=== PATIENT | female | born 1950 | race Caucasian/White ===

== ENCOUNTER 2016-06-18 09:59 | Inpatient (IN) | payer OTHER ==
[2016-05-26 10:11] VITALS: BMI 31.0
--- NOTE | 2016-05-26 10:39 | PAT Medication Instructions ---
Service Date May 26, 2016. Current Home Medication List Cyanocobalamin (Vitamin B-12), 1,000 MCG PO QAM Fexofenadine Hcl (Asya Allergy), 1 TAB PO QAM Fish Oil (Hitchins-3), 1 CAP PO QAM Loperamide Hcl (Imodium), 2 MG PO QAM Polysaccharide Iron Complex (Ferrex 150), 150 MG PO QAM Thiamine Hcl (Vitamin B-1), 100 MG PO QAM Travoprost (Travatan Z), 1 DROPS OP HS Turmeric (Curcuma Longa) (Bulk (Turmeric), 0.5 TSP PO BID [Longevi-D K2], 1 TAB PO BID Medication Instructions For Your Scheduled Surgery - Hold the following medications 2 weeks prior to surgery: Fish Oil (Hitchins-3), 1 CAP PO QAM Turmeric (Curcuma Longa) (Bulk (Turmeric), 0.5 TSP PO BID [Longevi-D K2], 1 TAB PO BID - Hold the following medications the morning of surgery: Cyanocobalamin (Vitamin B-12), 1,000 MCG PO QAM Fexofenadine Hcl (Asya Allergy), 1 TAB PO QAM Loperamide Hcl (Imodium), 2 MG PO QAM Polysaccharide Iron Complex (Ferrex 150), 150 MG PO QAM Thiamine Hcl (Vitamin B-1), 100 MG PO QAM - Take the following medications as scheduled the night before surgery: Travoprost (Travatan Z), 1 DROPS OP HS *Nothing to eat or drink after midnight* If you have any questions please call us at [phone] (Tracey Chi PA-C ) or [phone] or [phone]
--- NOTE | 2016-05-26 11:27 | DIAGNOSTIC IMAGING REPORT ---
CHEST PREADMISSION(PA/LAT) CLINICAL HISTORY: PAT COMPARISON STUDY: No previous studies for comparison. FINDINGS: The bones soft tissues and hemidiaphragms are normal. The cardiomediastinal silhouette is normal. The lungs are clear. The pulmonary vasculature is normal. IMPRESSION: Negative chest. Electronically signed by: Rajeev Caban M.D. 05/26/2016 11:25 AM
[2016-05-26 11:30] LABS: BASO % 0.4 %; BASO ABS # 0.03 K/uL (0-0.2); COMPLETE YES; EOS % 3.2 %; HEMATOCRIT 38.1 % (37-47); IG% 0.3 %; LYMPH % 29.9 %; LYMPH ABS # 2.35 K/uL (1.2-3.4); MEAN CORPUSCULAR HEMOGLOBIN 30.1 pg (25-34); MEAN CORPUSCULAR HGB CONC 33.9 g/dl (32-36); MEAN PLATELET VOLUME 10.7 fL (7.4-10.4); MONO % 3.3 %; NEUT % 62.9 %; PLATELET COUNT 206 K/uL (130-400); RED BLOOD COUNT 4.28 M/uL (4.2-5.4); WHITE BLOOD COUNT 7.85 K/uL (4.8-10.8)
[2016-05-26 11:49] LABS: INR 0.9 (0.9-1.1); PARTIAL THROMBOPLASTIN RATIO 0.9; PROTHROMBIN TIME (PATIENT) 10.1 SECONDS (9.0-12.0)
[2016-05-26 12:00] LABS: BUN/CREATININE RATIO 27.6 (10-20); CREATININE 0.59 mg/dl (0.60-1.20); POTASSIUM 4.4 mmol/L (3.5-5.1)
[2016-05-26 12:27] LABS: ESTIMATED AVERAGE GLUCOSE 123 mg/dl; HA1C FLAG Normal (Normal)
--- NOTE | 2016-06-17 12:45 | HISTORY & PHYSICAL EXAMINATION ---
DATE OF ADMISSION: 06/18/2016 CHIEF COMPLAINT: Right hip pain. HISTORY OF PRESENT ILLNESS: The patient is a 66-year-old female with known osteoarthritis about her right hip. She is unable to take NSAIDs due to a history of gastric ulcers. She has progressive pain and disability with activities of daily living. She has pain with prolonged weightbearing and standing activities. She has difficulty kneeling, bending, or squatting activities. She now desires to proceed with right total hip arthroplasty. PAST MEDICAL HISTORY: Mild asthma, which rarely affects her and hyperlipidemia. PAST SURGICAL HISTORY: Carpal tunnel, rectal repair, 2 bladder surgeries, and hysterectomy. MEDICATIONS: Calcium plus D, Flonase, albuterol, Asya-D, Imodium A-D, Ferrex 150 mg, methylcobalamin, omega 3, Travatan, turmeric, and vitamin B12. ALLERGIES: BACTRIM, PENICILLIN, SHELLFISH, BEE STINGS AND CONTRAST DYE. SOCIAL HISTORY AND REVIEW OF SYSTEMS: Noncontributory. PHYSICAL EXAMINATION: GENERAL: Well-nourished and well-developed elderly female, who appears her stated age. HEENT: Normocephalic and atraumatic. Extraocular movements intact. Oropharynx is pink and moist. NECK: Supple without adenopathy. LUNGS: Clear to auscultation bilaterally. HEART: Regular rate and rhythm. ABDOMEN: Soft, nontender, and nondistended. EXTREMITIES: The upper extremities are within normal limits. The right hip demonstrates limited range of motion. There is limitation of active and passive internal/external rotation with pain at end range. X-RAYS: X-rays were reviewed. She has severe osteoarthritis about the right hip with near complete loss of the joint space. There are large osteophytes about the femoral head and acetabulum. ASSESSMENT: Right hip degenerative joint disease. PLAN: Risks versus benefits were discussed. Consent was obtained. The patient's primary care physician is Dr. Varela from [facility]. We will proceed with right total hip arthroplasty upon preoperative workup and medical clearance. HEAVENLY
[~2016-06-18] VITALS: Ht 157.5 cm; Wt 78.3 kg
[2016-06-18] VITALS (8 sets, daily range): BP systolic 120–149; BP diastolic 61–82; PULSE 76–93; TEMP 36.4–36.7; O2SAT 94–98; Ht 157.5 cm; Wt 78.3 kg
[2016-06-18] MEDS: TRANEXAMIC ACID INJ 1,000 MG in SODIUM CHLORIDE 0.9% 100ML 100 ML IV SCH ×2 (06:30→10:57)
[~2016-06-18 09:59] MED LIST: ACETAMINOPHEN 500 MG TAB PO SCH; ANCEF: ALLERGY NOTED TO ORDERED MEDICATION SCH; BUPIVACAINE 0.5 % 5 MG/1 ML PF 10ML VIAL ONE; CEFAZOLIN 1000MG/55 ML D5W 55 ML IV SCH; CYAN10005 PO; CeleBREX 200 MG CAP PO SCH; DEXAMETHASONE 4 MG TAB PO SCH; FAMOTIDINE 20 MG TAB PO SCH; FEXO1TAB49 PO; GABAPENTIN 300 MG CAP PO SCH; IMD/2 PO; LACTATED RINGER'S 1000ML IV SCH; LACTATED RINGER'S 500 ML IV SCH; METOCLOPRAMIDE HCL 10 MG TAB PO SCH; OMEG10007 PO; ORTHO JOINT ANESTHETIC ONE; POLY150C4 PO; ROPIVACAINE 5MG/ML 30 ML 150 MG, BUPIVACAINE/EPINEPHR 0.5% MPF 30 ML, KETOROLAC TROMETH... INFIL SCH; THIA100T11 PO; TRAV0.00 OP; TURMPOW PO; [UNRECOGNIZED DRUG - MIXTURE] PO; [UNRECOGNIZED DRUG - REMARK] SCH
[2016-06-18] MEDS ORDERED: [UNRECOGNIZED DRUG - REMARK] INH (10:23)
[2016-06-18] MEDS ORDERED: NAPR1TAB9 PO (10:24)
[2016-06-18] MEDS ORDERED: flonase nasal spray NAE (10:25)
--- NOTE | 2016-06-18 11:19 | History & Physical Bridge Note ---
H&P Re-Evaluation Bridge Note: I have examined the patient, reviewed the History & Physical and in the interval since the performance of the History & Physical I have noted the following changes of clinical significance: No changes noted
[2016-06-18] MEDS ORDERED: MIDAZOLAM HCL 1 MG/ML 2ML VIAL ONE (11:48)
[2016-06-18] MEDS ORDERED: FENTANYL CITRATE INJ 50 MCG/1 ML 2 ML VIAL ONE ×2 (11:48→11:52)
--- NOTE | 2016-06-18 12:17 | [facility] Post Operative Brief Note ---
Immediate Operative Summary Operative Date Jun 18, 2016. Pre-Operative Diagnosis Right Hip Degenerative Joint Disease Post-Operative Diagnosis Same as preop Procedure(s) Performed Right Total Hip Arthroplasty Uncemented Surgeon Dr. Cintron Back Tender Surgeon(s) Poncho Bolaños PA-C Estimated Blood Loss 100cc Findings oa Specimens A. Right Femoral Head Disposition Recovery Room / PACU
[2016-06-18] MEDS ORDERED: PROPOFOL IV EMULSION 10 MG/ML 20 ML VIAL IV ONE (12:19)
[2016-06-18] MEDS ORDERED: EpHEDrine SULFATE 50MG/5ML SYR ONE (12:20)
[2016-06-18] MEDS ORDERED: BACITRACIN 50000 UNIT VIAL IR ONE (12:26)
[2016-06-18] MEDS ORDERED: PHENYLEPHRINE 100MCG/ML 5ML SYR IV PRN (12:30)
[2016-06-18] MEDS ORDERED: ATROPINE SULFATE 0.1 MG/ML 5ML SYR IV PRN (12:30)
[2016-06-18] MEDS ORDERED: EpHEDrine SULFATE INJ 50 MG/ML AMP IV PRN (12:30)
[2016-06-18] MEDS ORDERED: ONDANSETRON INJ 2 MG/ML 2 ML VIAL IV PRN ×2 (12:30→12:45)
[2016-06-18] MEDS ORDERED: MoRPHine SULFATE 10 MG/ML CARP/VIAL IV PRN (12:45)
[2016-06-18] MEDS ORDERED: ZOLPIDEM TARTRATE 5 MG TAB PO PRN (12:45)
[2016-06-18] MEDS ORDERED: ALUMINUM/MAGNESIUM/SIMETH (MAALOX MAX) 30 ML UDC PO PRN (12:45)
[2016-06-18] MEDS ORDERED: MAGNESIUM HYDROXIDE SUSP 30 ML UDC PO PRN (12:45)
[2016-06-18] MEDS ORDERED: METOCLOPRAMIDE HCL INJ 5 MG/ML 2 ML VIAL IV PRN (12:45)
--- NOTE | 2016-06-18 13:00 | OPERATIVE REPORT ---
DATE OF OPERATION: 06/18/2016 PREOPERATIVE DIAGNOSIS: Osteoarthritis right hip. POSTOPERATIVE DIAGNOSIS: Osteoarthritis right hip. PROCEDURE: Right connective total hip arthroplasty. SURGEON: Dr. Dobbins. SENIOR WATER RESOURCES ENGINEER: Poncho Bolaños PA-C. ANESTHESIA: Spinal. COMPLICATIONS: None. OPERATION AND FINDINGS: PROCEDURE: Following induction of adequate spinal anesthesia, the patient was placed in left lateral decubitus position and right Caren-Langenbeck incision was made. Subcutaneous tissue was sharply dissected. Electrocautery used for hemostasis. The fascia was incised throughout the length of the wound and a gongora scissor placed beneath the short external rotators. The pyriformis was tagged with #1 Vicryl. The short external rotators were divided from the posterior aspect of the femur using electrocautery. These were swept posteriorly. A T-capsulotomy incision was made and the hip was dislocated using a combination of flexion, adduction, and internal rotation. Exposure of the femoral neck with old-style Hohmann and a blunt Hohmann was carried out and a femoral rasp was utilized as a guide for making the appropriate level femoral neck cut. This bone fragment was removed and reserved on the back table. Next, attention was turned to the acetabulum where bone hook was used to retract the femur while the offset retractors were placed anterior and posteriorly. A double-angled Hohmann was placed in superior and anterior position exposing the acetabulum nicely. Acetabular labrum, as well as posterior capsule elements were removed using a long knife and a long pickup. Fovea centralis was cleared of all soft tissue. Sequential reamings were carried up to a 50 and decision was made to proceed with impaction of a acetabular shell 50 trabecular metal cup. This was impacted and held using a single 35 mm bone screw. The acetabular liner was placed with 15 of elevated posterior wall in the superior and posterior position. Next, attention was turned to the femoral portion of the case where a Bovie and pickup was used to further clear short external rotators from their insertion on the femur. Box osteotome was used to gain access to the femoral canal and the T-handled rasp and a rattail rasp were used to further open and lateral the canal. Sequentially raspings were carried up to a 1 which gave good fit and fill of the proximal femur. A trial reduction was carried out and femoral stem size 2 offset femoral neck component was chosen as the size to be used. A -5 x 36 mm ceramic femoral head was impacted into position, +0 head was utilized. The trial reduction was stable in all degrees of rotation with no [id number] impingement. The hip was dislocated. The trial components were removed and the final femoral stem, neck, and femoral head combination were assembled on the back table and impacted into position. Hip was relocated. Range of motion checked once again successful and the wound was irrigated. The pyriformis repaired to the greater trochanter using #1 Vicryl [id number]-[id number]-croea suture. A Hemovac drain was placed and the fascia was closed using #1 Vicryl, subcutaneous tissue was closed using 0 Dexon, and skin was closed with fabricio. Sterile dressing of Adaptic, 4 x 4's, ABDs, and foam tape was applied. Recovery room stable. The patient tolerated the procedure well. Due to the complex nature of the procedure, the entire surgery was performed with the operational assistance of Poncho Bolaños PA-C. The office clerk assistant, under direct supervision, was involved in the actual performance of all aspects of the surgical procedure including hemostasis, tissue retraction and incision, instrument management, patient positioning, and wound closure. I attest to the content of the Intraoperative Record and any orders documented therein. Any exceptions are noted below. HEAVENLY
--- NOTE | 2016-06-18 13:12 | Anesthesiology Progress Note ---
Anesthesia Post Op Note Date & Time Jun 18, 2016 at 13:11 Vital Signs Pain Intensity: 0 Vital Signs Past 12 Hours Date Time Temp Pulse Resp B/P Pulse Ox O2 Delivery O2 Flow Rate FiO2 06/18/16 12:59 82 14 06/18/16 12:59 81 14 95 06/18/16 12:58 125/58 06/18/16 12:54 84 15 06/18/16 12:54 82 15 98 06/18/16 12:53 130/60 06/18/16 12:49 91 12 99 06/18/16 12:49 88 12 06/18/16 12:48 116/55 06/18/16 12:44 85 11 99 06/18/16 12:44 36.5 83 12 118/48 96 Room Air 06/18/16 12:44 86 11 06/18/16 10:15 36.7 76 20 149/82 95 Room Air Notes Mental Status: alert / awake / arousable, participated in evaluation Pt Amnestic to Procedure: Yes Nausea / Vomiting: adequately controlled Pain: adequately controlled Airway Patency, RR, SpO2: stable & adequate BP & HR: stable & adequate Hydration State: stable & adequate Anesthetic Complications: no major complications apparent
--- NOTE | 2016-06-18 13:13 | DIAGNOSTIC IMAGING REPORT ---
AP PELVIS, CROSSTABLE LATERAL RIGHT HIP History: Right total hip arthroplasty. Degenerative arthritis. Postop. FINDINGS: The patient is status post a right total hip arthroplasty. The hardware is intact. No fracture or dislocation. Skin fabricio and surgical drains are in place. Moderate osteoarthritis within the left hip. IMPRESSION: Right total hip arthroplasty. No evidence for hardware complication Electronically signed by: Marcell Skinner M.D. 06/18/2016 1:11 PM Dictated Date/Time: 06/18/2016 1:11 PM
[2016-06-18] MEDS ORDERED: HYDROmorphone INJ 1 MG/ML SYR ONE (14:42)
[2016-06-18] MEDS: HYDROmorphone INJ 2 MG/ML SYR/VIAL IV PRN ×2 (14:45→14:50)
[2016-06-18] MEDS: D5W AND 1/2NSS + 20MEQ KCL 1,000 ML IV SCH (17:08)
[2016-06-18] MEDS: KETOROLAC TROMETHAMINE 15 MG/ML VIAL IV. SCH ×2 (17:11→22:17)
[2016-06-18] MEDS: FERROUS GLUCONATE 324 MG TAB PO SCH (18:49)
[2016-06-18] MEDS: CEFAZOLIN IV 1,000 MG in DEXTROSE 5% 50ML 50 ML IV SCH (20:03)
[2016-06-18] MEDS: OXYCODONE HCL IR 5 MG TAB (IMMEDIATE RELEASE) PO PRN (20:08)
[2016-06-18] MEDS: DOCUSATE SODIUM 100 MG CAP PO SCH (21:00)
[2016-06-18] MEDS: ASPIRIN 81 MG ECTAB PO SCH (21:02)
[2016-06-18] MEDS: PREGABALIN 75 MG CAP PO SCH (21:04)
[2016-06-18] MEDS: TRAVOPROST Z 0.004% OPH SOLN 2.5 ML BTL OP SCH (21:04)
[2016-06-18] MEDS: ACETAMINOPHEN 500 MG TAB PO SCH (22:15)
[2016-06-19] MEDS: D5W AND 1/2NSS + 20MEQ KCL 1,000 ML IV SCH (02:05)
[2016-06-19] MEDS: OXYCODONE HCL IR 5 MG TAB (IMMEDIATE RELEASE) PO PRN ×3 (02:13→23:39)
[2016-06-19 03:37] VITALS: BP 120/72; PULSE 81; TEMP 36.7; O2SAT 95
[2016-06-19] MEDS: CEFAZOLIN IV 1,000 MG in DEXTROSE 5% 50ML 50 ML IV SCH (04:10)
[2016-06-19] MEDS: KETOROLAC TROMETHAMINE 15 MG/ML VIAL IV. SCH ×2 (04:11→10:10)
[2016-06-19] MEDS: ACETAMINOPHEN 500 MG TAB PO SCH ×3 (05:39→21:37)
[2016-06-19 07:10] LABS: BASO % 0.1 %; BASO ABS # 0.01 K/uL (0-0.2); COMPLETE YES; IG% 0.3 %; LYMPH % 8.8 %; LYMPH ABS # 1.33 K/uL (1.2-3.4); MEAN CELL VOLUME 88.9 fL (80-100); MEAN CORPUSCULAR HEMOGLOBIN 29.6 pg (25-34); MEAN CORPUSCULAR HGB CONC 33.3 g/dl (32-36); MEAN PLATELET VOLUME 10.2 fL (7.4-10.4); MONO % 8.4 %; NEUT % 82.4 %; PLATELET COUNT 186 K/uL (130-400); RED BLOOD COUNT 4.05 M/uL (4.2-5.4); WHITE BLOOD COUNT 15.06 K/uL (4.8-10.8)
[2016-06-19 07:12] VITALS: BP 125/72; PULSE 67; TEMP 36.6; O2SAT 91
[2016-06-19 07:20] VITALS: O2SAT 91
[2016-06-19] MEDS ORDERED: DEXAMETHASONE INJ 10 MG in SYRINGE 0 ML IV SCH (07:30)
[2016-06-19 07:43] LABS: BUN/CREATININE RATIO 21.6 (10-20); CALCIUM 8.5 mg/dl (8.5-10.1); CREATININE 0.74 mg/dl (0.60-1.20); POTASSIUM 4.2 mmol/L (3.5-5.1)
--- NOTE | 2016-06-19 07:55 | Orthopedic Progress Note ---
Orthopedic Progress Note Date of Service Jun 19, 2016. Subjective Post OP Day: 1 Reports: feeling well Objective calves soft nontender, N/V intact, dressing C/D/I (Hemovac d/c'd, Prevena in place), toes mobile Date Time Temp Pulse Resp B/P Pulse Ox O2 Delivery O2 Flow Rate FiO2 06/19/16 03:37 36.7 81 18 120/72 95 Room Air 06/18/16 23:35 94 Room Air 06/18/16 23:09 36.6 78 16 123/68 98 Room Air 2.0 06/18/16 19:01 36.7 93 18 136/70 98 Nasal Cannula 3.0 06/18/16 17:57 36.5 79 18 129/72 98 Nasal Cannula 2.0 06/18/16 16:55 36.7 78 18 120/61 98 Nasal Cannula 3.0 06/18/16 16:22 36.6 80 18 127/69 97 Nasal Cannula 2.0 06/18/16 15:50 Nasal Cannula 2.0 06/18/16 15:50 36.4 84 17 121/74 96 Nasal Cannula 2.0 06/18/16 15:50 96 Nasal Cannula 2.0 06/18/16 15:29 86 18 06/18/16 15:29 88 18 96 06/18/16 15:28 129/54 06/18/16 15:24 89 16 06/18/16 15:24 88 16 96 06/18/16 15:23 126/61 06/18/16 15:20 89 21 96 06/18/16 15:20 90 21 06/18/16 15:18 120/58 06/18/16 15:15 81 24 96 06/18/16 15:15 82 24 06/18/16 15:13 115/59 06/18/16 15:10 82 19 06/18/16 15:10 82 19 96 06/18/16 15:08 111/57 06/18/16 15:05 81 24 96 06/18/16 15:05 83 24 06/18/16 15:03 118/64 06/18/16 15:00 84 13 06/18/16 15:00 83 13 95 06/18/16 14:58 115/57 06/18/16 14:55 87 25 96 06/18/16 14:55 87 25 06/18/16 14:53 117/58 06/18/16 14:50 83 16 06/18/16 14:50 83 16 96 06/18/16 14:48 111/56 06/18/16 14:45 83 20 94 06/18/16 14:45 84 20 06/18/16 14:43 114/56 06/18/16 14:40 82 19 06/18/16 14:40 81 19 96 06/18/16 14:38 115/56 06/18/16 14:35 86 16 06/18/16 14:35 85 16 97 06/18/16 14:34 82 16 96 06/18/16 14:34 82 16 06/18/16 14:33 111/53 06/18/16 14:29 79 13 96 06/18/16 14:29 79 13 06/18/16 14:28 112/55 06/18/16 14:24 77 14 06/18/16 14:24 76 14 96 06/18/16 14:23 113/59 06/18/16 14:19 82 15 06/18/16 14:19 80 15 96 06/18/16 14:18 113/55 06/18/16 14:14 80 17 06/18/16 14:14 80 17 96 06/18/16 14:13 104/63 06/18/16 14:09 79 13 97 06/18/16 14:09 79 13 06/18/16 14:08 116/54 06/18/16 14:04 79 16 94 06/18/16 14:04 78 16 06/18/16 14:03 121/56 06/18/16 13:59 87 23 06/18/16 13:59 86 23 96 06/18/16 13:58 121/56 06/18/16 13:54 83 19 06/18/16 13:54 80 19 97 06/18/16 13:53 121/57 06/18/16 13:52 36.4 78 17 121/57 97 Nasal Cannula 2 06/18/16 13:49 76 17 06/18/16 13:49 75 17 96 06/18/16 13:48 114/58 06/18/16 13:46 77 13 06/18/16 13:46 78 13 96 06/18/16 13:43 124/56 06/18/16 13:41 80 13 96 06/18/16 13:41 80 13 06/18/16 13:38 107/64 06/18/16 13:36 78 14 06/18/16 13:36 78 14 96 06/18/16 13:33 134/67 06/18/16 13:31 76 17 96 06/18/16 13:31 76 17 06/18/16 13:28 109/61 06/18/16 13:26 79 13 06/18/16 13:26 81 13 98 06/18/16 13:23 123/60 06/18/16 13:21 75 18 97 06/18/16 13:21 77 18 06/18/16 13:20 75 13 99 06/18/16 13:20 75 13 06/18/16 13:18 112/60 06/18/16 13:15 74 15 06/18/16 13:15 74 15 98 06/18/16 13:13 142/69 06/18/16 13:10 77 10 06/18/16 13:10 78 10 98 06/18/16 13:08 123/64 06/18/16 13:05 72 21 97 06/18/16 13:05 73 21 06/18/16 13:03 131/55 06/18/16 13:00 82 18 06/18/16 13:00 86 18 95 06/18/16 12:59 82 14 06/18/16 12:59 81 14 95 06/18/16 12:58 125/58 06/18/16 12:54 84 15 06/18/16 12:54 82 15 98 06/18/16 12:53 130/60 06/18/16 12:49 91 12 99 06/18/16 12:49 88 12 06/18/16 12:48 116/55 06/18/16 12:44 85 11 99 06/18/16 12:44 36.5 83 12 118/48 96 Room Air 06/18/16 12:44 86 11 06/18/16 10:15 36.7 76 20 149/82 95 Room Air Laboratory Results 24 Hours: Test 06/19/16 06:56 White Blood Count 15.06 K/uL Red Blood Count 4.05 M/uL Hemoglobin 12.0 g/dL Hematocrit 36.0 % Mean Corpuscular Volume 88.9 fL Mean Corpuscular Hemoglobin 29.6 pg Mean Corpuscular Hemoglobin Concent 33.3 g/dl Platelet Count 186 K/uL Mean Platelet Volume 10.2 fL Neutrophils (%) (Auto) 82.4 % Lymphocytes (%) (Auto) 8.8 % Monocytes (%) (Auto) 8.4 % Eosinophils (%) (Auto) 0.0 % Basophils (%) (Auto) 0.1 % Neutrophils # (Auto) 12.41 K/uL Lymphocytes # (Auto) 1.33 K/uL Monocytes # (Auto) 1.26 K/uL Eosinophils # (Auto) 0.00 K/uL Basophils # (Auto) 0.01 K/uL Assessment & Plan Assessment: 66 yo female stable POD #1 s/p right FREDRICK Plan: 1. Med management 2. DVT prophylaxis- ASA, TEDs, SCDs 3. PT/OT 4. D/C planning- pt interested in [facility]
[2016-06-19] MEDS: FERROUS GLUCONATE 324 MG TAB PO SCH ×3 (08:36→17:49)
[2016-06-19] MEDS: ASPIRIN 81 MG ECTAB PO SCH ×2 (08:36→20:50)
[2016-06-19] MEDS: DOCUSATE SODIUM 100 MG CAP PO SCH ×2 (08:37→20:50)
[2016-06-19] MEDS: MULTIVITAMIN TAB PO SCH (08:37)
[2016-06-19] MEDS: PANTOprazole SOD 40 MG TAB PO SCH (08:38)
[2016-06-19] MEDS: THIAMINE HCL 100 MG TAB PO SCH (08:38)
[2016-06-19] MEDS: PREGABALIN 75 MG CAP PO SCH ×2 (08:41→20:50)
--- NOTE | 2016-06-19 08:44 | Anesthesiology Progress Note ---
Anesthesia Post Op Note Date & Time Jun 19, 2016 at 08:44 Vital Signs Pain Intensity: 2.0 Vital Signs Past 12 Hours Date Time Temp Pulse Resp B/P Pulse Ox O2 Delivery O2 Flow Rate FiO2 06/19/16 07:20 91 Room Air 06/19/16 07:12 36.6 67 17 125/72 91 Room Air 06/19/16 03:37 36.7 81 18 120/72 95 Room Air 06/18/16 23:35 94 Room Air 06/18/16 23:09 36.6 78 16 123/68 98 Room Air 2.0 Notes Mental Status: alert / awake / arousable, participated in evaluation Pt Amnestic to Procedure: Yes Nausea / Vomiting: adequately controlled Pain: adequately controlled Airway Patency, RR, SpO2: stable & adequate BP & HR: stable & adequate Hydration State: stable & adequate Neuraxial Anesthesia: was administered, sensory block resolved Anesthetic Complications: no major complications apparent
[2016-06-19] MEDS ORDERED: CYANOCOBALAMIN 500 MCG TAB (VIT B-12) PO SCH (09:00)
[2016-06-19 10:42] VITALS: BP 117/74; PULSE 72; TEMP 36.7; O2SAT 98
[2016-06-19 15:17] VITALS: BP 114/67; PULSE 69; TEMP 36.8; O2SAT 96
[2016-06-19] MEDS: TRAVOPROST Z 0.004% OPH SOLN 2.5 ML BTL OP SCH (20:51)
[2016-06-19 22:59] VITALS: BP 117/62; PULSE 83; TEMP 36.8; O2SAT 94
[2016-06-20] MEDS: ACETAMINOPHEN 500 MG TAB PO SCH ×3 (05:24→21:39)
[2016-06-20 06:05] VITALS: BP 119/71; PULSE 77; TEMP 37; O2SAT 96
[2016-06-20 07:53] VITALS: BP 110/72; PULSE 76; TEMP 36.9; O2SAT 97
[2016-06-20] MEDS: FERROUS GLUCONATE 324 MG TAB PO SCH ×3 (08:17→18:33)
[2016-06-20] MEDS: PANTOprazole SOD 40 MG TAB PO SCH (08:18)
[2016-06-20] MEDS: THIAMINE HCL 100 MG TAB PO SCH (08:19)
[2016-06-20] MEDS: DOCUSATE SODIUM 100 MG CAP PO SCH ×2 (08:20→21:40)
[2016-06-20] MEDS: MULTIVITAMIN TAB PO SCH (08:21)
[2016-06-20] MEDS: PREGABALIN 75 MG CAP PO SCH ×2 (08:21→21:39)
[2016-06-20] MEDS: CYANOCOBALAMIN 1000 MCG PO SCH (08:23)
[2016-06-20 08:31] VITALS: O2SAT 97
[2016-06-20] MEDS: ASPIRIN 81 MG ECTAB PO SCH ×3 (10:37→21:39)
[2016-06-20 12:04] VITALS: BP 122/74; PULSE 82; TEMP 36.7; O2SAT 95
--- NOTE | 2016-06-20 13:14 | Orthopedic Progress Note ---
Orthopedic Progress Note Date of Service Jun 20, 2016. Subjective Post OP Day: 2 Reports: feeling well, pain controlled w PO medications, Denies: SOB, calf pain , chest pain, light headedness, nausea / vomiting Objective calves soft nontender, N/V intact, hip located, capillary refill less than 2 sec., dressing C/D/I, A&O x3, toes mobile Date Time Temp Pulse Resp B/P Pulse Ox O2 Delivery O2 Flow Rate FiO2 06/20/16 12:04 36.7 82 18 122/74 95 Room Air 06/20/16 08:31 97 Room Air 06/20/16 07:53 36.9 76 18 110/72 97 Room Air 06/20/16 06:05 37.0 77 16 119/71 96 Room Air 06/19/16 23:49 Room Air 06/19/16 22:59 36.8 83 18 117/62 94 Room Air 06/19/16 15:17 36.8 69 16 114/67 96 Room Air 06/19/16 15:15 Room Air Assessment & Plan Assessment: 66 yo female stable POD #2 s/p right FREDRICK Plan: 1. Med management 2. DVT prophylaxis- ASA, TEDs, SCDs 3. PT/OT 4. D/C planning- pt interested in [facility] Inhouse Planning Pain Management: PO Tylenol, Oxy IR DVT Prophylaxis: TEDs, SCDs, ASA Discharge Planning Discharge Planning: shelter facility
[2016-06-20 15:26] VITALS: BP 112/62; PULSE 84; TEMP 36.5; O2SAT 95
[2016-06-20] MEDS: OXYCODONE HCL IR 5 MG TAB (IMMEDIATE RELEASE) PO PRN (21:38)
[2016-06-20] MEDS: TRAVOPROST Z 0.004% OPH SOLN 2.5 ML BTL OP SCH (21:38)
[2016-06-20] MEDS ORDERED: ONDA8TAB6 PO (21:52)
[2016-06-20] MEDS ORDERED: ACET-1138 PO (21:52)
[2016-06-20] MEDS ORDERED: RXC5 PO (21:52)
[2016-06-20] MEDS ORDERED: ASPEC81 PO (21:52)
--- NOTE | 2016-06-20 21:55 | Discharge Instructions ---
Discharge Instructions Admission Reason for Admission: Right Hip Osteoarthritis Discharge Discharge Diagnosis / Problem: Right Total Hip Arthroplasty Discharge Goals Goal(s): Decrease discomfort, Improve function, Increase independence, Therapeutic intervention Activity Recommendations Activity Level: Up Ad Nilsa Therapies: Physical Therapy ACTIVITY RECOMMENDATIONS: SELF CARE INSTRUCTIONS AFTER TOTAL HIP REPLACEMENT Until the incision and soft tissues around your hip have healed, there is a possibility that the hip prosthesis could dislocate. A. Observe the following precautions to prevent dislocation: 1. Don't bend your hip greater than 90 degrees. 2. Avoid crossing your legs or ankles while standing or lying. 3. Sit with your feet placed 6 inches apart. 4. When sitting, keep your knees below your hips. Sit on a firm surface, avoid deep, soft chairs and couches. Use an elevated toilet seat in the bathroom. 5. Don't bend over at the waist. Use a long handled shoehorn and a sock aid to help you put on your shoes and socks. A septic tank setter can help you pickle sorter objects that are too high or too low to reach. 6. Keep car riding to a minimum for at least one month after surgery. B. Your balance may be shaky for a while. Use crutches or a walker until directed by your doctor. C. Use hand rails when walking on stairs. D. Wear low heeled shoes with non-slip soles. E. Be sure that your floors are free of things that could trip you - throw rugs , electrical cords, small objects. Avoid wet and waxed floors, especially with crutches and canes. F. Try to walk several times a day with rest periods between. G. Continue with all the exercises taught to you in the hospital. Again, make walking a part of your daily routine. SPECIAL CARE INSTRUCTIONS: VERY IMPORTANT TO READ AND REVIEW A. You may still be at risk for phlebitis and blood clots. 1. Wear surgical stockings (ALEN hose) for 2 weeks after surgery to improve circulation and reduce swelling. 2. Take Aspirin 81mg twice daily for 4 weeks or as directed by your doctor. This is your blood thinner. 3. High risk patients may be prescribed a stronger blood thinner if necessary. 4. If you are on Coumadin normally, your family doctor/irrigation technician should monitor your blood work. Expect a phone call the day of or the day after bloodwork is drawn to adjust your dosage. B. You must take antibiotics before having dental work, bladder, bowel and other surgery. Your doctor will provide you with a permanent card to carry describing precautions. C. Call [facility] if you have a fever, redness or swelling around the incision, cloudy drainage from incision, or sudden increase in pain in your hip, not relieved by your regular pain medication. D. Please call the office at if you have any concerns or questions about your operation or recovery. * YOU MAY SHOWER, NO TUB BATHS UNTIL CLEARED BY YOUR DOCTOR. * WEAR ALEN HOSE 20 HOURS PER DAY FOR 2 WEEKS. * YOU SHOULD USE A WALKER OR CRUTCHES FOR 2-4 WEEKS. THIS WILL HELP PREVENT STRAIN ON YOUR HIP MUSCLE AND ALLOW IT TO HEAL PROPERLY. YOU MAY WEAN TO A CANE TOLERATED. * MOST PATIENTS WILL HAVE HOME NURSING FOR THERAPY. IF YOU DECIDE TO DO OUTPATIENT PHYSICAL THERAPY, PLEASE SCHEDULE THIS 3 TIMES PER WEEK. * YOU MAY HAVE A LARGE, BAND-KIMBERLY LIKE DRESSING (SILVERON). THIS WILL REMAIN ON YOUR INCISION FOR 7 DAYS, THEN CAN BE REMOVED. IF INCISION IS LEAKING THROUGH DRESSING, PLEASE CALL THE OFFICE . FOLLOW UP VISIT: If appointment is not already scheduled: Please call [facility] to make a follow-up appointment for 2 weeks after your surgery at . . Additional Information Patient informed of condition: Yes Advance Directives: Yes DNR: No Level of Care: Skilled Communicable Disease: No Prognosis: Stable Current Hospital Diet Patient's current hospital diet: Regular Diet, Gluten Free Diet Discharge Diet Recommended Diet: Regular Diet, Gluten Free Diet Procedures Procedures Performed: Right Total Hip Arthroplasty Uncemented Pending Studies Studies pending at discharge: no Laboratory Results Hemoglobin A1c Test 05/26/16 10:46 Range/Units Estimated Average Glucose 123 mg/dl Hemoglobin A1c 5.9 H 4.5-5.6 % Medical Emergencies . Who to Call and When: Medical Emergencies: If at any time you feel your situation is an emergency, please call 911 immediately. . Non-Emergent Contact Non-Emergency issues call your: Primary Care Provider . . "Provider Documentation" section prepared by Ana Maria Nguyen. Core Measure Problem Core Measures: None
[2016-06-20 22:53] VITALS: BP 103/65; PULSE 85; TEMP 36.4; O2SAT 95
[2016-06-21] MEDS: ACETAMINOPHEN 500 MG TAB PO SCH (05:43)
[2016-06-21 06:00] VITALS: BP 118/76; PULSE 80; TEMP 36.9; O2SAT 93
--- NOTE | 2016-06-21 08:54 | Orthopedic Progress Note ---
Orthopedic Progress Note Date of Service Jun 21, 2016. Subjective Post OP Day: 3 Reports: feeling well, pain controlled w PO medications, Denies: SOB, calf pain , chest pain, light headedness, nausea / vomiting Objective calves soft nontender, N/V intact, hip located, capillary refill less than 2 sec., dressing C/D/I, A&O x3, toes mobile Date Time Temp Pulse Resp B/P Pulse Ox O2 Delivery O2 Flow Rate FiO2 06/21/16 06:00 36.9 80 14 118/76 93 Room Air 06/20/16 22:53 36.4 85 16 103/65 95 Room Air 06/20/16 20:00 Room Air 06/20/16 15:26 36.5 84 18 112/62 95 Room Air 06/20/16 12:04 36.7 82 18 122/74 95 Room Air Assessment & Plan Assessment: 66 yo female stable POD 3 s/p right FREDRICK Plan: 1. Med management 2. DVT prophylaxis- ASA, TEDs, SCDs 3. PT/OT 4. D/C planning- pt interested in [facility]- insurance denied. She will go [facility] Inhouse Planning Pain Management: PO Tylenol, Oxy IR DVT Prophylaxis: TEDs, SCDs, ASA Discharge Planning Discharge Planning: assisted facility Pain Management: PO Tylenol, Oxy IR DVT Prophylaxis: TEDs, SCDs, ASA Therapy: Physical Therapy
[2016-06-21] MEDS: DOCUSATE SODIUM 100 MG CAP PO SCH (09:00)
[2016-06-21] MEDS: CYANOCOBALAMIN 1000 MCG PO SCH (10:34)
[2016-06-21] MEDS: THIAMINE HCL 100 MG TAB PO SCH (10:35)
[2016-06-21] MEDS: ASPIRIN 81 MG ECTAB PO SCH (10:35)
[2016-06-21] MEDS: MULTIVITAMIN TAB PO SCH (10:35)
[2016-06-21] MEDS: PREGABALIN 75 MG CAP PO SCH (10:36)
[2016-06-21] MEDS: PANTOprazole SOD 40 MG TAB PO SCH (10:36)
[2016-06-21] MEDS: FERROUS GLUCONATE 324 MG TAB PO SCH ×2 (10:36→12:54)
[2016-06-21] MEDS: OXYCODONE HCL IR 5 MG TAB (IMMEDIATE RELEASE) PO PRN (12:57)
[2016-06-21 13:08] VITALS: BP 118/76; PULSE 80; TEMP 36.9; O2SAT 93
--- NOTE | 2016-07-01 15:15 | DISCHARGE SUMMARY ---
CHIEF COMPLAINT: Right hip pain. Please see complete history and physical examination. HOSPITAL COURSE: The patient underwent right total hip arthroplasty without complication. She tolerated the procedure well and was discharged to recovery room in stable condition. Her postoperative course was relatively uneventful. Her postoperative pain was reasonably well controlled with a combination of spinal anesthesia, intraoperative joint injection, IV, and oral pain medications. She was started on aspirin for DVT prophylaxis. She also utilized ALEN stockings and SCDs for additional prophylaxis. Her H\T\H was stable and did not require transfusion. Her surgical drain was discontinued by postoperative day 2. Her surgical dressing will remain in place for approximately 7 days postoperative. She tolerated postoperative physical therapy reasonably well where she was ambulating and transferring appropriately. She was observing all total hip precautions. She was transferred to [facility] upon discharge on postoperative day 3. She will continue her physical therapy there. She will continue her aspirin for DVT prophylaxis and follow up in our office in approximately 10-14 days for initial postop evaluation.
[2016-12-08] MEDS ORDERED: FLUT0.15 (11:44)
[2016-12-08] MEDS ORDERED: MISCCAP52 PO (11:44)
[2016-12-08] MEDS ORDERED: METH1LOZ PO (11:44)
[2016-12-08] MEDS ORDERED: VNTHFA/IN INH (11:44)
[2016-12-08] MEDS ORDERED: PROB1CAP54 PO (11:44)
[2016-12-08] MEDS ORDERED: NAPR1TAB9 PO (11:44)
== END 2016-06-21 14:26 | DRG 470 ==
LOC: ENRESERVDT → ENRESERVTM → C.ACU 09:59 → C.3E 11:15
PROC: 0SR904A Replacement of Right Hip Joint with Ceramic on Polyethylene Synthetic Substitute, Uncemented, Open Approach (ICD-10-PCS; principal; 2016-06-18 12:00)
DX: M16.11 Unilateral primary osteoarthritis, right hip (principal); J45.909 Unspecified asthma, uncomplicated; E78.5 Hyperlipidemia, unspecified; E66.9 Obesity, unspecified; Z68.31 Body mass index [BMI] 31.0-31.9, adult; Z79.899 Other long term (current) drug therapy; Z98.890 Other specified postprocedural states

== ENCOUNTER 2017-01-07 05:10 | Inpatient (IN) | payer OTHER ==
[2016-12-08 11:45] VITALS: BMI 31.0
[2016-12-29 12:32] LABS: BASO % 0.4 %; BASO ABS # 0.03 K/uL (0-0.2); COMPLETE YES; EOS % 3.3 %; HEMATOCRIT 40.4 % (37-47); IG% 0.1 %; LYMPH % 25.5 %; LYMPH ABS # 1.87 K/uL (1.2-3.4); MEAN CELL VOLUME 92.2 fL (80-100); MEAN CORPUSCULAR HEMOGLOBIN 29.2 pg (25-34); MEAN CORPUSCULAR HGB CONC 31.7 g/dl (32-36); MEAN PLATELET VOLUME 10.6 fL (7.4-10.4); MONO % 4.6 %; NEUT % 66.1 %; PLATELET COUNT 249 K/uL (130-400); RED BLOOD COUNT 4.38 M/uL (4.2-5.4); WHITE BLOOD COUNT 7.32 K/uL (4.8-10.8)
[2016-12-29 12:38] LABS: ESTIMATED AVERAGE GLUCOSE 123 mg/dl; HA1C FLAG Normal (Normal)
[2016-12-29 12:45] LABS: INR 0.9 (0.9-1.1); PROTHROMBIN TIME (PATIENT) 10.1 SECONDS (9.0-12.0)
[2016-12-29 12:46] LABS: URINE APPEARANCE CLEAR (CLEAR); URINE BILIRUBIN NEG (NEG); URINE COLOR YELLOW; URINE EPITHELIAL CELL AUTO >30 /lpf (0-5); URINE NITRITE NEG (NEG); URINE SPECIFIC GRAVITY 1.015 (1.000-1.030); UROBILINOGEN NEG (NEG)
[2016-12-29 12:53] LABS: MANUAL MICROSCOPIC REQUIRED? NO; REVIEW REQ? NO
[2016-12-29 13:26] LABS: BUN/CREATININE RATIO 25.1 (10-20); CALCIUM 9.1 mg/dl (8.5-10.1); CREATININE 0.55 mg/dl (0.60-1.20); POTASSIUM 4.2 mmol/L (3.5-5.1)
--- NOTE | 2017-01-06 15:29 | HISTORY & PHYSICAL EXAMINATION ---
DATE OF ADMISSION: 01/07/2017 CHIEF COMPLAINT: Left hip pain. HISTORY OF PRESENT ILLNESS: The patient is a 66-year-old female with known osteoarthritis about her left hip. She had successful right total hip replacement approximately 7 months ago. She continues to have ongoing pain and disability with her left hip and now desires to proceed with total hip arthroplasty on this side as well. PAST MEDICAL HISTORY: Mild asthma, which rarely affects her and hyperlipidemia. PAST SURGICAL HISTORY: Right total hip as above, carpal tunnel, rectal repair, 2 bladder surgeries, and hysterectomy. MEDICATIONS: Calcium plus D, Flonase, albuterol, Asya-D 12 hour allergy and congestion, Ferrex 150 mg, vitamin B1 at 100 mg, methylcobalamin, omega-3 at 1000 mg, Travatan 0.004%, acidophilus probiotic, and turmeric. ALLERGIES: BACTRIM, PENICILLIN, SHELLFISH, BEE STINGS, AND CONTRAST DYE. SOCIAL HISTORY AND REVIEW OF SYSTEMS: Noncontributory. PHYSICAL EXAMINATION: GENERAL: Well-nourished and well-developed elderly female, who appears her stated age. HEENT: Normocephalic and atraumatic. Extraocular movements intact. Oropharynx is pink and moist. NECK: Supple without adenopathy. LUNGS: Clear to auscultation bilaterally. HEART: Regular rate and rhythm. ABDOMEN: Soft, nontender, and nondistended. EXTREMITIES: The upper extremities are within normal limits. The left hip demonstrates limited range of motion. There is limitation of active and passive internal/external rotation with pain at end range. X-RAYS: X-rays were reviewed. She has severe osteoarthritis about the left hip with complete loss of the joint space. There are osteophytes about the femoral head and acetabulum. ASSESSMENT: Left hip degenerative joint disease. PLAN: Risks versus benefits were discussed. Consent was obtained. The patient's primary care physician is Dr. Varela from [place]. We will proceed with left total hip arthroplasty upon preoperative workup and medical clearance.
[~2017-01-07] VITALS: Ht 157.5 cm; Wt 78.3 kg
[2017-01-07] VITALS (8 sets, daily range): BP systolic 120–159; BP diastolic 67–83; PULSE 73–88; TEMP 36.5–36.8; O2SAT 92–98; Ht 157.5 cm; Wt 78.3 kg
[~2017-01-07 05:10] MED LIST changes: -ACETAMINOPHEN 500 MG TAB PO SCH; -ANCEF: ALLERGY NOTED TO ORDERED MEDICATION SCH; -BUPIVACAINE 0.5 % 5 MG/1 ML PF 10ML VIAL ONE; -CEFAZOLIN 1000MG/55 ML D5W 55 ML IV SCH; -CYAN10005 PO; -CeleBREX 200 MG CAP PO SCH; -DEXAMETHASONE 4 MG TAB PO SCH; -FAMOTIDINE 20 MG TAB PO SCH; +FLUT0.15; -GABAPENTIN 300 MG CAP PO SCH; -LACTATED RINGER'S 1000ML IV SCH; -LACTATED RINGER'S 500 ML IV SCH; +METH1LOZ PO; -METOCLOPRAMIDE HCL 10 MG TAB PO SCH; +MISCCAP52 PO; +NAPR1TAB9 PO; -ORTHO JOINT ANESTHETIC ONE; +PROB1CAP54 PO; -ROPIVACAINE 5MG/ML 30 ML 150 MG, BUPIVACAINE/EPINEPHR 0.5% MPF 30 ML, KETOROLAC TROMETH... INFIL SCH; +RXC5 PO; -TRAV0.00 OP; -TURMPOW PO; +VNTHFA/IN INH; -[UNRECOGNIZED DRUG - MIXTURE] PO; -[UNRECOGNIZED DRUG - REMARK] SCH
[2017-01-07] MEDS ORDERED: FAMOTIDINE 20 MG TAB PO SCH (06:00)
[2017-01-07] MEDS ORDERED: DEXAMETHASONE 4 MG TAB PO SCH (06:00)
[2017-01-07] MEDS ORDERED: ACETAMINOPHEN 500 MG TAB PO SCH (06:00)
[2017-01-07] MEDS ORDERED: METOCLOPRAMIDE HCL 10 MG TAB PO SCH (06:00)
[2017-01-07] MEDS ORDERED: GABAPENTIN 300 MG CAP PO SCH (06:00)
[2017-01-07] MEDS ORDERED: CeleBREX 200 MG CAP PO SCH (06:00)
[2017-01-07] MEDS ORDERED: LACTATED RINGER'S 1000ML 1,000 ML IV SCH ×2 (06:00)
[2017-01-07] MEDS ORDERED: CEFAZOLIN 1000MG/55 ML D5W 55 ML IV SCH (06:00)
[2017-01-07] MEDS ORDERED: ROPIVACAINE 5MG/ML 30 ML 150 MG, BUPIVACAINE/EPINEPHR 0.5% MPF 30 ML, KETOROLAC TROMETH... INFIL SCH ×7 (06:00)
[2017-01-07] MEDS ORDERED: BUPIVACAINE 0.5 % 5 MG/1 ML PF 10ML VIAL ONE (06:20)
[2017-01-07] MEDS: TRANEXAMIC ACID INJ 1,000 MG in SODIUM CHLORIDE 0.9% 100ML 100 ML IV SCH ×2 (06:30→06:40)
[2017-01-07] MEDS ORDERED: MIDAZOLAM HCL 1 MG/ML 2ML VIAL ONE (06:39)
[2017-01-07] MEDS ORDERED: FENTANYL CITRATE INJ 50 MCG/1 ML 2 ML VIAL ONE (06:39)
[2017-01-07] MEDS ORDERED: BACITRACIN 50000 UNIT VIAL ONE (06:43)
[2017-01-07] MEDS ORDERED: POVIDONE-IODINE OP SOLN 30 ML BTL ONE (06:43)
[2017-01-07] MEDS ORDERED: ORTHO JOINT ANESTHETIC ONE (06:43)
[2017-01-07] MEDS ORDERED: EpHEDrine SULFATE INJ 50 MG/ML AMP IV PRN (07:30)
[2017-01-07] MEDS ORDERED: HYDROmorphone INJ 2 MG/ML SYR/VIAL IV PRN (07:30)
[2017-01-07] MEDS ORDERED: PHENYLEPHRINE 100MCG/ML 5ML SYR IV PRN (07:30)
[2017-01-07] MEDS ORDERED: ONDANSETRON INJ 2 MG/ML 2 ML VIAL IV PRN ×2 (07:30→08:00)
[2017-01-07] MEDS ORDERED: ATROPINE SULFATE 0.1 MG/ML 5ML SYR IV PRN (07:30)
[2017-01-07] MEDS ORDERED: NEOSTIGMINE METHYLSULFATE 5 MG/5 ML SYR ONE (07:43)
--- NOTE | 2017-01-07 07:58 | [facility] Post Operative Brief Note ---
Immediate Operative Summary Operative Date Jan 07, 2017. Pre-Operative Diagnosis Left hip degenerative joint disease Post-Operative Diagnosis Left hip degenerative joint disease Procedure(s) Performed Left total hip arthroplasty Surgeon Dr. Dobbins Bridge Expert Surgeon(s) Poncho Bolaños PA-C Estimated Blood Loss 100cc Findings severe OA Specimens A. Left femoral head Complication(s) None Disposition Recovery Room / PACU
[2017-01-07] MEDS ORDERED: MAGNESIUM HYDROXIDE SUSP 30 ML UDC PO PRN (08:00)
[2017-01-07] MEDS ORDERED: FLUTICASONE PROPIONATE NA SPR 16 GM BTL PRN (08:00)
[2017-01-07] MEDS ORDERED: BISACODYL 10 MG SUPP PR PRN (08:00)
[2017-01-07] MEDS ORDERED: ZOLPIDEM TARTRATE 5 MG TAB PO PRN (08:00)
[2017-01-07] MEDS ORDERED: ALBUTEROL HFA 8 GM INHALER INH PRN (08:00)
[2017-01-07] MEDS ORDERED: METOCLOPRAMIDE HCL INJ 5 MG/ML 2 ML VIAL IV PRN (08:00)
[2017-01-07] MEDS ORDERED: SOD PHOSPHATE/SOD BIPHOSPHATE ENEMA 132 ML BTL PR PRN (08:00)
[2017-01-07] MEDS ORDERED: MoRPHine SULFATE 2 MG/ML CARP IV PRN (08:00)
--- NOTE | 2017-01-07 08:09 | OPERATIVE REPORT ---
DATE OF OPERATION: 01/07/2017 PREOPERATIVE DIAGNOSIS: Osteoarthritis left hip. POSTOPERATIVE DIAGNOSIS: Osteoarthritis left hip. PROCEDURE: Left connective total hip arthroplasty. SURGEON: Dr. Dobbins. ASBESTOS SURVEYOR: Poncho Bolaños PA-C. ANESTHESIA: Spinal. COMPLICATIONS: None. OPERATION AND FINDINGS: PROCEDURE: Following induction of adequate spinal anesthesia, the patient was placed in right lateral decubitus position and left Caren-Langenbeck incision was made. Subcutaneous tissue was sharply dissected. Electrocautery used for hemostasis. The fascia was incised throughout the length of the wound and a gongora scissor placed beneath the short external rotators. The pyriformis was tagged with #1 Vicryl. The short external rotators were divided from the posterior aspect of the femur using electrocautery. These were swept posteriorly. A T-capsulotomy incision was made and the hip was dislocated using a combination of flexion, adduction, and internal rotation. Exposure of the femoral neck with old-style Hohmann and a blunt Hohmann was carried out and a femoral rasp was utilized as a guide for making the appropriate level femoral neck cut. This bone fragment was removed and reserved on the back table. Next, attention was turned to the acetabulum where bone hook was used to retract the femur while the offset retractors were placed anterior and posteriorly. A double-angled Hohmann was placed in superior and anterior position exposing the acetabulum nicely. Acetabular labrum as well as posterior capsule elements were removed using a long knife and a long pickup. Fovea centralis was cleared of all soft tissue. Sequential reamings were carried up to a 50 and decision was made to proceed with impaction of a 50 trabecular metal cup. This was impacted and held using a single 35 mm bone screw. The acetabular liner was placed with 15 of elevated posterior wall in the superior and posterior position. Next, attention was turned to the femoral portion of the case where a Bovie and pickup was used to further clear short external rotators from their insertion on the femur. Box osteotome was used to gain access to the femoral canal and the T-handled rasp and a rattail rasp were used to further open and lateral the canal. Sequentially raspings were carried up to a size which gave good fit and fill of the proximal femur. A trial reduction was carried out and std offset femoral neck component was chosen as the size to be used. A -2.5 x 36 ceramic mm femoral head was impacted into position, +0 head was utilized. The trial reduction was stable in all degrees of rotation with no [id number] impingement. The hip was dislocated. The trial components were removed and the final femoral stem, neck, and femoral head combination were assembled on the back table and impacted into position. Hip was relocated. Range of motion checked once again successful and the wound was irrigated. The pyriformis repaired to the greater trochanter using #1 Vicryl [id number] suture. A Hemovac drain was placed and the fascia was closed using #1 Vicryl, subcutaneous tissue was closed using 0 Dexon, and skin was closed with fabricio. Sterile dressing of Adaptic, 4 x 4's, ABDs, and foam tape was applied. Recovery room stable. The patient tolerated the procedure well. Due to the complex nature of the procedure, the entire surgery was performed with the operational assistance of Poncho Bolaños PA-C. The optical assistant, under direct supervision, was involved in the actual performance of all aspects of the surgical procedure including hemostasis, tissue retraction and incision, instrument management, patient positioning, and wound closure. I attest to the content of the Intraoperative Record and any orders documented therein. Any exceptions are noted below. HEAVENLY
--- NOTE | 2017-01-07 08:53 | DIAGNOSTIC IMAGING REPORT ---
LEFT PELVIS/UNILATERAL HIP 1 VIEW CLINICAL HISTORY: IN PACU - A/P PELVIS and LATERAL HIP INCLUDING ALL OF IMPLANT COMPARISON: None. DISCUSSION: Anatomic alignment status post total left hip replacement. Good contact between prosthetic and underlying bone. Surgical drains are in position. Pre-existing total right hip arthroplasty. IMPRESSION: Anatomic alignment status post total left hip arthroplasty. The above report was generated using voice recognition software. It may contain grammatical, syntax or spelling errors. Electronically signed by: Rajeev Caban M.D. 01/07/2017 8:52 AM Dictated Date/Time: 01/07/2017 8:52 AM
--- NOTE | 2017-01-07 09:50 | Anesthesiology Progress Note ---
Anesthesia Post Op Note Date & Time Jan 07, 2017 at 09:49 Vital Signs Pain Intensity: 0 Vital Signs Past 12 Hours Date Time Temp Pulse Resp B/P (MAP) Pulse Ox O2 Delivery O2 Flow Rate FiO2 01/07/17 09:05 36.1 73 13 122/56 95 Nasal Cannula 2 01/07/17 08:55 74 14 123/54 96 Nasal Cannula 2 01/07/17 08:45 77 20 129/63 98 Nasal Cannula 2 01/07/17 08:35 86 16 117/62 98 Nasal Cannula 2 01/07/17 08:28 36.0 86 20 121/54 98 Nasal Cannula 2 01/07/17 05:45 36.6 81 20 159/83 95 Room Air Notes Mental Status: alert / awake / arousable, participated in evaluation Pt Amnestic to Procedure: Yes Nausea / Vomiting: adequately controlled Pain: adequately controlled Airway Patency, RR, SpO2: stable & adequate BP & HR: stable & adequate Hydration State: stable & adequate Anesthetic Complications: no major complications apparent
[2017-01-07] MEDS: D5W AND 1/2NSS + 20MEQ KCL 1,000 ML IV SCH ×2 (10:13→20:23)
[2017-01-07] MEDS: FEXOFENADINE HCL 180 MG TAB PO SCH (10:14)
[2017-01-07] MEDS: PANTOprazole SOD 40 MG TAB PO SCH (10:14)
[2017-01-07] MEDS ORDERED: MoRPHine SULFATE 4 MG/ML 1 ML CARP\\VIAL IV PRN (10:15)
[2017-01-07] MEDS ORDERED: MoRPHine SULFATE 10 MG/ML CARP/VIAL IV PRN (10:15)
[2017-01-07] MEDS: LOPERAMIDE HCL 2 MG CAP PO SCH (10:15)
[2017-01-07] MEDS: THIAMINE HCL 100 MG TAB PO SCH (10:15)
[2017-01-07] MEDS ORDERED: TRANEXAMIC ACID INJ 1,000 MG in SODIUM CHLORIDE 0.9% 100ML 100 ML IV ONE (13:00)
[2017-01-07] MEDS: ACETAMINOPHEN 500 MG TAB PO SCH ×2 (13:44→21:37)
[2017-01-07] MEDS: OXYCODONE HCL IR 5 MG TAB (IMMEDIATE RELEASE) PO PRN ×2 (16:32→21:43)
[2017-01-07] MEDS: CEFAZOLIN IV 1,000 MG in DEXTROSE 5% 50ML 50 ML IV SCH (16:32)
[2017-01-07] MEDS: ASPIRIN 81 MG ECTAB PO SCH (20:44)
[2017-01-07] MEDS: SENNA 8.6 MG TAB PO SCH (20:46)
[2017-01-07] MEDS: DOCUSATE SODIUM 100 MG CAP PO SCH (20:46)
[2017-01-08] MEDS: CEFAZOLIN IV 1,000 MG in DEXTROSE 5% 50ML 50 ML IV SCH (00:17)
[2017-01-08 04:00] VITALS: BP 117/78; PULSE 80; TEMP 36.7; O2SAT 97
[2017-01-08] MEDS: OXYCODONE HCL IR 5 MG TAB (IMMEDIATE RELEASE) PO PRN ×3 (04:20→21:01)
[2017-01-08 05:51] LABS: COMPLETE YES; HEMATOCRIT 32.4 % (37-47); IG% 0.3 %; LYMPH % 8.1 %; LYMPH ABS # 1.17 K/uL (1.2-3.4); MEAN CELL VOLUME 89.5 fL (80-100); MEAN CORPUSCULAR HEMOGLOBIN 29.6 pg (25-34); MEAN PLATELET VOLUME 10.9 fL (7.4-10.4); NEUT % 84.6 %; PLATELET COUNT 187 K/uL (130-400); RED BLOOD COUNT 3.62 M/uL (4.2-5.4); WHITE BLOOD COUNT 14.38 K/uL (4.8-10.8)
[2017-01-08] MEDS: D5W AND 1/2NSS + 20MEQ KCL 1,000 ML IV SCH (06:08)
[2017-01-08] MEDS: ACETAMINOPHEN 500 MG TAB PO SCH ×3 (06:09→20:58)
[2017-01-08 07:04] VITALS: BP 128/72; PULSE 86; TEMP 36.7; O2SAT 96
--- NOTE | 2017-01-08 07:35 | Orthopedic Progress Note ---
Orthopedic Progress Note Date of Service Jan 08, 2017. Subjective Post OP Day: 1 Reports: feeling well Objective calves soft nontender, N/V intact, dressing C/D/I (Hemovac d/c'd), toes mobile Date Time Temp Pulse Resp B/P (MAP) Pulse Ox O2 Delivery O2 Flow Rate FiO2 01/08/17 07:04 36.7 86 18 128/72 (90) 96 Room Air 01/08/17 04:00 36.7 80 16 117/78 (91) 97 Room Air 01/08/17 00:15 Room Air 01/07/17 22:48 36.7 84 16 123/73 (90) 95 Room Air 01/07/17 19:48 36.7 82 18 147/75 (99) 94 Room Air 01/07/17 16:00 Room Air 01/07/17 15:20 36.6 79 18 120/67 (84) 92 Room Air 01/07/17 12:19 77 19 123/76 (92) 96 Nasal Cannula 2.0 01/07/17 11:20 36.5 88 17 128/75 (92) 98 Nasal Cannula 2.0 01/07/17 10:18 36.6 76 18 130/78 (95) 98 Nasal Cannula 2.0 01/07/17 09:54 36.8 73 17 125/73 (90) 98 Nasal Cannula 2.0 01/07/17 09:20 Nasal Cannula 2.0 01/07/17 09:20 98 Nasal Cannula 2.0 01/07/17 09:05 36.1 73 13 122/56 95 Nasal Cannula 2 01/07/17 08:55 74 14 123/54 96 Nasal Cannula 2 01/07/17 08:45 77 20 129/63 98 Nasal Cannula 2 01/07/17 08:35 86 16 117/62 98 Nasal Cannula 2 01/07/17 08:28 36.0 86 20 121/54 98 Nasal Cannula 2 Laboratory Results 24 Hours: Test 01/08/17 05:01 White Blood Count 14.38 K/uL Red Blood Count 3.62 M/uL Hemoglobin 10.7 g/dL Hematocrit 32.4 % Mean Corpuscular Volume 89.5 fL Mean Corpuscular Hemoglobin 29.6 pg Mean Corpuscular Hemoglobin Concent 33.0 g/dl Platelet Count 187 K/uL Mean Platelet Volume 10.9 fL Neutrophils (%) (Auto) 84.6 % Lymphocytes (%) (Auto) 8.1 % Monocytes (%) (Auto) 7.0 % Eosinophils (%) (Auto) 0.0 % Basophils (%) (Auto) 0.0 % Neutrophils # (Auto) 12.17 K/uL Lymphocytes # (Auto) 1.17 K/uL Monocytes # (Auto) 1.00 K/uL Eosinophils # (Auto) 0.00 K/uL Basophils # (Auto) 0.00 K/uL Assessment & Plan Assessment: 66 yo female stable POD #1 s/p left FREDRICK Plan: 1. Med management 2. DVT prophylaxis- ASA, SCDs 3. PT/OT 4. D/C planning- pt interested in [facility] or [place]
--- NOTE | 2017-01-08 07:39 | Discharge Instructions ---
Discharge Instructions Date of Service Jan 08, 2017. Admission Reason for Admission: Left Hip Osteoarthritis;Pre-Op Z01.818,M16.12 Discharge Discharge Diagnosis / Problem: Left hip arthritis Discharge Goals Goal(s): Decrease discomfort, Improve function Activity Recommendations Activity Limitations: as noted below Weightbearing Status: Left weightbearing (as tolerated) . Instructions / Follow-Up Instructions / Follow-Up ACTIVITY RECOMMENDATIONS: SELF CARE INSTRUCTIONS AFTER TOTAL HIP REPLACEMENT Until the incision and soft tissues around your hip have healed, there is a possibility that the hip prosthesis could dislocate. A. Observe the following precautions to prevent dislocation: 1. Don't bend your hip greater than 90 degrees. 2. Avoid crossing your legs or ankles while standing or lying. 3. Sit with your feet placed 6 inches apart. 4. When sitting, keep your knees below your hips. Sit on a firm surface, avoid deep, soft chairs and couches. Use an elevated toilet seat in the bathroom. 5. Don't bend over at the waist. Use a long handled shoehorn and a sock aid to help you put on your shoes and socks. A photographic engineer can help you pickle water pump operator objects that are too high or too low to reach. 6. Keep car riding to a minimum for at least one month after surgery. B. Your balance may be shaky for a while. Use crutches or a walker until directed by your doctor. C. Use hand rails when walking on stairs. D. Wear low heeled shoes with non-slip soles. E. Be sure that your floors are free of things that could trip you - throw rugs , electrical cords, small objects. Avoid wet and waxed floors, especially with crutches and canes. F. Try to walk several times a day with rest periods between. G. Continue with all the exercises taught to you in the hospital. Again, make walking a part of your daily routine. SPECIAL CARE INSTRUCTIONS: VERY IMPORTANT TO READ AND REVIEW A. You may still be at risk for phlebitis and blood clots. 1. Wear surgical stockings (ALEN hose) for 2 weeks after surgery to improve circulation and reduce swelling. 2. Take Aspirin 81mg twice daily for 4 weeks or as directed by your doctor. This is your blood thinner. 3. High risk patients may be prescribed a stronger blood thinner if necessary. 4. If you are on Coumadin normally, your family doctor/fraternity adviser should monitor your blood work. Expect a phone call the day of or the day after bloodwork is drawn to adjust your dosage. B. You must take antibiotics before having dental work, bladder, bowel and other surgery. Your doctor will provide you with a permanent card to carry describing precautions. C. Call [facility] if you have a fever, redness or swelling around the incision, cloudy drainage from incision, or sudden increase in pain in your hip, not relieved by your regular pain medication. D. Please call the office at if you have any concerns or questions about your operation or recovery. * YOU MAY SHOWER, NO TUB BATHS UNTIL CLEARED BY YOUR DOCTOR. * WEAR ALEN HOSE 20 HOURS PER DAY FOR 2 WEEKS. * YOU SHOULD USE A WALKER OR CRUTCHES FOR 2-4 WEEKS. THIS WILL HELP PREVENT STRAIN ON YOUR HIP MUSCLE AND ALLOW IT TO HEAL PROPERLY. YOU MAY WEAN TO A CANE TOLERATED. * MOST PATIENTS WILL HAVE HOME NURSING FOR THERAPY. IF YOU DECIDE TO DO OUTPATIENT PHYSICAL THERAPY, PLEASE SCHEDULE THIS 3 TIMES PER WEEK. * YOU MAY HAVE A LARGE, BAND-KIMBERLY LIKE DRESSING (SILVERON). THIS WILL REMAIN ON YOUR INCISION FOR 7 DAYS, THEN CAN BE REMOVED. IF INCISION IS LEAKING THROUGH DRESSING, PLEASE CALL THE OFFICE . FOLLOW UP VISIT: If appointment is not already scheduled: Please call [facility] to make a follow-up appointment for 2 weeks after your surgery at . Current Hospital Diet Patient's current hospital diet: Regular Diet Discharge Diet Recommended Diet: Regular Diet Procedures Procedures Performed: Left total hip arthroplasty Pending Studies Studies pending at discharge: no Laboratory Results Hemoglobin A1c Test 12/29/16 10:26 Range/Units Estimated Average Glucose 123 mg/dl Hemoglobin A1c 5.9 H 4.5-5.6 % Medical Emergencies . Who to Call and When: Medical Emergencies: If at any time you feel your situation is an emergency, please call 911 immediately. . Non-Emergent Contact Non-Emergency issues call your: Surgeon Call Non-Emergent contact if: temperature is above 101.5, your pain is not controlled, wound has increased drainage, wound has increased redness . "Provider Documentation" section prepared by Poncho Bolaños PA-C. . VTE Core Measure Inpt VTE Proph given/why not?: Other Anticoagulation (ASA 81mg bid), Zully Robles, SCD's [place] Drug Monitoring Program Search Results: patient reviewed within database, no issues identified
[2017-01-08] MEDS: ASPIRIN 81 MG ECTAB PO SCH ×2 (08:21→20:05)
[2017-01-08] MEDS: THIAMINE HCL 100 MG TAB PO SCH (08:21)
[2017-01-08] MEDS: PANTOprazole SOD 40 MG TAB PO SCH (08:21)
[2017-01-08] MEDS: FEXOFENADINE HCL 180 MG TAB PO SCH (08:21)
[2017-01-08] MEDS: LOPERAMIDE HCL 2 MG CAP PO SCH (08:22)
[2017-01-08] MEDS: MULTIVITAMIN TAB PO SCH (08:22)
[2017-01-08] MEDS: DOCUSATE SODIUM 100 MG CAP PO SCH ×2 (08:22→20:05)
[2017-01-08 09:43] LABS: BUN/CREATININE RATIO 22.3 (10-20); CALCIUM 8.2 mg/dl (8.5-10.1); CREATININE 0.64 mg/dl (0.60-1.20); POTASSIUM 4.3 mmol/L (3.5-5.1)
--- NOTE | 2017-01-08 09:59 | Anesthesiology Progress Note ---
Anesthesia Post Op Note Date & Time Jan 08, 2017 at 09:58 Vital Signs Pain Intensity: 2.0 Vital Signs Past 12 Hours Date Time Temp Pulse Resp B/P (MAP) Pulse Ox O2 Delivery O2 Flow Rate FiO2 01/08/17 07:35 Room Air 01/08/17 07:04 36.7 86 18 128/72 (90) 96 Room Air 01/08/17 04:00 36.7 80 16 117/78 (91) 97 Room Air 01/08/17 00:15 Room Air 01/07/17 22:48 36.7 84 16 123/73 (90) 95 Room Air Notes Mental Status: alert / awake / arousable, participated in evaluation Pt Amnestic to Procedure: Yes Nausea / Vomiting: adequately controlled Pain: adequately controlled Airway Patency, RR, SpO2: stable & adequate BP & HR: stable & adequate Hydration State: stable & adequate Neuraxial Anesthesia: was administered, sensory block resolved Anesthetic Complications: no major complications apparent
[2017-01-08 15:07] VITALS: BP 110/64; PULSE 76; TEMP 36.6; O2SAT 94
[2017-01-08 16:00] VITALS: O2SAT 94
[2017-01-08] MEDS: SENNA 8.6 MG TAB PO SCH (20:05)
[2017-01-08 23:15] VITALS: BP 144/78; PULSE 86; TEMP 36.7; O2SAT 95
[2017-01-09] MEDS: ACETAMINOPHEN 500 MG TAB PO SCH (05:41)
[2017-01-09 06:50] VITALS: BP 144/75; PULSE 78; TEMP 36.6; O2SAT 98
--- NOTE | 2017-01-09 07:26 | Orthopedic Progress Note ---
Orthopedic Progress Note Date of Service Jan 09, 2017. Subjective Post OP Day: 2 Reports: feeling well, pain controlled w PO medications, Denies: complaints, chest pain, SOB, nausea / vomiting, light headedness, calf pain Additional Notes: Patient states that she is feeling well with no complaints. Objective calves soft nontender, hip located, capillary refill less than 2 sec., dressing C/D/I, A&O x3, toes mobile Date Time Temp Pulse Resp B/P (MAP) Pulse Ox O2 Delivery O2 Flow Rate FiO2 01/09/17 06:50 36.6 78 16 144/75 (98) 98 Room Air 01/09/17 00:00 Room Air 01/08/17 23:15 36.7 86 16 144/78 (100) 95 Room Air 01/08/17 16:00 94 Room Air 01/08/17 15:07 36.6 76 18 110/64 (79) 94 Room Air 01/08/17 07:35 Room Air Assessment & Plan Assessment: 66 yo female stable POD #2 s/p left FREDRICK Plan: 1. Med management 2. DVT prophylaxis- ASA, SCDs 3. PT/OT 4. D/C planning- pt interested in [facility] or [place] Discharge Planning Discharge Planning: assisted facility DVT Prophylaxis: TEDs, ASA
[2017-01-09] MEDS ORDERED: ACET-24 PO (07:31)
[2017-01-09] MEDS ORDERED: ASPEC81 PO (07:31)
[2017-01-09] MEDS ORDERED: ONDA8TAB6 PO (07:31)
[2017-01-09] MEDS: FEXOFENADINE HCL 180 MG TAB PO SCH (07:36)
[2017-01-09] MEDS: MULTIVITAMIN TAB PO SCH (07:36)
[2017-01-09] MEDS: LOPERAMIDE HCL 2 MG CAP PO SCH (07:37)
[2017-01-09] MEDS: PANTOprazole SOD 40 MG TAB PO SCH (07:37)
[2017-01-09] MEDS: ASPIRIN 81 MG ECTAB PO SCH (07:37)
[2017-01-09] MEDS: THIAMINE HCL 100 MG TAB PO SCH (07:38)
[2017-01-09] MEDS: DOCUSATE SODIUM 100 MG CAP PO SCH (07:40)
[2017-01-09] MEDS: OXYCODONE HCL IR 5 MG TAB (IMMEDIATE RELEASE) PO PRN (07:44)
[2017-01-09] MEDS ORDERED: METHYLCOBALAMIN 1000 MCG PO SCH (09:00)
[2017-01-09 09:49] VITALS: BP 144/75; PULSE 78; TEMP 36.6; O2SAT 98
--- NOTE | 2017-01-22 14:53 | DISCHARGE SUMMARY ---
CHIEF COMPLAINT: Left hip pain. Please see complete history and physical examination. HOSPITAL COURSE: The patient underwent left total hip arthroplasty without complication. She tolerated the procedure well and was discharged to recovery room in stable condition. Her postoperative course was relatively uneventful. Her postoperative pain was reasonably well controlled with a combination of spinal anesthesia, intraoperative joint injection, IV, and oral pain medications. She was started on aspirin for DVT prophylaxis. She also utilized ALEN stockings and SCDs for additional prophylaxis. Her H&H was stable and did not require transfusion. Her surgical drain was discontinued on postoperative day 1, her surgical dressing will remain in place for approximately 7 days. She tolerated postoperative physical therapy reasonably well and she was ambulating and transferring appropriately. She was observing all total hip precautions. She was transferred to [facility] upon discharge from the hospital. She will continue her physical therapy there. She will continue her aspirin for DVT prophylaxis and follow up in our office in approximately 10-14 days for initial postop evaluation.
== END 2017-01-09 10:42 | DRG 470 ==
LOC: C.ACU 05:10 → C.3E 06:30 → ENRESERV 09:01
PROC: 0SRB0JA Replacement of Left Hip Joint with Synthetic Substitute, Uncemented, Open Approach (ICD-10-PCS; principal; 2017-01-07 07:00)
DX: M16.12 Unilateral primary osteoarthritis, left hip (principal); E78.5 Hyperlipidemia, unspecified; J45.909 Unspecified asthma, uncomplicated; Z79.899 Other long term (current) drug therapy

== ENCOUNTER → 2017-09-02 | Outpatient (CLI) | payer OTHER ==
[~2017-09-02] MED LIST changes: +ACET-24 PO; +ASPI-320 PO; -NAPR1TAB9 PO
--- NOTE | 2017-09-03 07:46 | MAMMOGRAPHY REPORT ---
BILATERAL DIGITAL SCREENING MAMMOGRAM TOMOSYNTHESIS WITH CAD: 09/02/2017 CLINICAL HISTORY: Routine screening. Patient has no complaints. TECHNIQUE: Breast tomosynthesis in addition to standard 2D mammography was performed. Current study was also evaluated with a Computer Aided Detection (CAD) system. COMPARISON: Digitized mammograms from [place] dated 04/30/2015, 04/30/2014, 04/25/2012. BREAST COMPOSITION: There are scattered areas of fibroglandular density in both breasts. FINDINGS: No suspicious masses, calcifications, or areas of architectural distortion are noted in ei ther breast. There has been no significant interval change compared to prior exams. Scattered bilate ral benign-appearing calcifications are again noted. IMPRESSION: ACR BI-RADS CATEGORY 2: BENIGN There is no mammographic evidence of malignancy. A 1 year screening mammogram is recommended. The pa tient will receive written notification of the results. Approximately 10% of breast cancers are not detected with mammography. A negative mammographic report should not delay biopsy if a clinically suggestive mass is present. Kristen Gautam M.D. ah/:09/02/2017 12:04:28 Community Health Promoter: Nikki DELGADILLO(Shavon)(M), [facility] letter sent: Normal 1/2 BI-RADS Code: ACR BI-RADS Category 2: Benign
== END | disposition home or self-care (01) ==
LOC: C.MAMM 10:49
PROVIDERS: ATTEND Family Medicine
DX: Z12.31 Encounter for screening mammogram for malignant neoplasm of breast (principal)

== ENCOUNTER 2017-09-30 07:46 | Inpatient (IN) | payer OTHER ==
[2017-09-16 10:58] VITALS: BMI 34.0
--- NOTE | 2017-09-16 11:31 | PAT Medication Instructions ---
Service Date Sep 16, 2017. Current Home Medication List Acetaminophen (Tylenol), 1-2 TAB PO UD PRN for Pain Albuterol Hfa (Ventolin Hfa), 2-4 PUFFS INH Q6H PRN for SOB/WHEEZING Aspirin (Aspirin Ec), 81 MG PO QAM Calcium/Vitamin D (Os-Suraj 500 Plus D), Unknown Dose PO QAM Fexofenadine Hcl (Asya Allergy), 1 TAB PO QAM Fish Oil (Brunswick-3), 1 CAP PO QAM Fluticasone Propionate (Nasal) (Flonase Allergy Relief), 1 SPRAY NA DAILY PRN for Nasal Congestion Loperamide Hcl (Imodium), 2 MG PO QAM Methylcobalamin (Methyl B-12), 1 TAB PO QAM Misc Natural Products (Turmeric Curcumin), 1 CAP PO QAM Pantoprazole (Protonix), 40 MG PO QAM Polysaccharide Iron Complex (Ferrex 150), 150 MG PO QAM Probiotic Product (Acidophilus), 1 CAP PO QAM Thiamine Hcl (Vitamin B-1), 100 MG PO QAM [Kyoric + Curcumin], QAM Medication Instructions For Your Scheduled Surgery - Hold the following medications 2 weeks prior to surgery: Fish Oil (Brunswick-3), 1 CAP PO QAM [Kyoric + Curcumin], QAM Misc Natural Products (Turmeric Curcumin), 1 CAP PO QAM - Hold the following medications the morning of surgery: Calcium/Vitamin D (Os-Suraj 500 Plus D), Unknown Dose PO QAM Fexofenadine Hcl (Asya Allergy), 1 TAB PO QAM Loperamide Hcl (Imodium), 2 MG PO QAM Methylcobalamin (Methyl B-12), 1 TAB PO QAM Polysaccharide Iron Complex (Ferrex 150), 150 MG PO QAM Probiotic Product (Acidophilus), 1 CAP PO QAM Thiamine Hcl (Vitamin B-1), 100 MG PO QAM - Take the following medications the morning of surgery with a sip of water: Acetaminophen (Tylenol), 1-2 TAB PO UD PRN for Pain (if needed, can be taken up to four hours before surgery) Albuterol Hfa (Ventolin Hfa), 2-4 PUFFS INH Q6H PRN for SOB/WHEEZING (if needed , and bring it with you to the hospital) Aspirin (Aspirin Ec), 81 MG PO QAM Fluticasone Propionate (Nasal) (Flonase Allergy Relief), 1 SPRAY NA DAILY PRN for Nasal Congestion (if needed) Pantoprazole (Protonix), 40 MG PO QAM - Take the following medications as scheduled the night before surgery: Acetaminophen (Tylenol), 1-2 TAB PO UD PRN for Pain (if needed) Albuterol Hfa (Ventolin Hfa), 2-4 PUFFS INH Q6H PRN for SOB/WHEEZING (if needed ) Fluticasone Propionate (Nasal) (Flonase Allergy Relief), 1 SPRAY NA DAILY PRN for Nasal Congestion (if needed) If you have any questions please call us at [phone] or [phone] or [phone]
--- NOTE | 2017-09-16 12:07 | DIAGNOSTIC IMAGING REPORT ---
TWO VIEW CHEST CLINICAL HISTORY: Preoperative examination. FINDINGS: PA and lateral chest radiographs are compared to study dated 05/26/2016. The cardiomediastinal silhouette is unremarkable. There is atherosclerotic calcification of the thoracic aorta. There is minimal bibasilar atelectasis. The lungs and pleural spaces are otherwise clear. There is no pneumothorax. The skeletal structures are osteopenic. Degenerative change and scoliosis are noted in the thoracic spine. Arthritic change is also seen in the shoulders. IMPRESSION: No active disease in the chest. Electronically signed by: Job Plata M.D. 09/16/2017 12:06 PM Dictated Date/Time: 09/16/2017 12:05 PM
[2017-09-16 13:24] LABS: BASO % 0.4 %; BASO ABS # 0.03 K/uL (0-0.2); EOS % 2.6 %; EOS ABS # 0.21 K/uL (0-0.5); HEMATOCRIT 40.4 % (37-47); HEMOGLOBIN 13.3 g/dL (12.0-16.0); IG# 0.02 K/uL (0.00-0.02); LYMPH % 28.3 %; LYMPH ABS # 2.27 K/uL (1.2-3.4); MEAN CELL VOLUME 89.8 fL (80-100); MEAN CORPUSCULAR HEMOGLOBIN 29.6 pg (25-34); MEAN CORPUSCULAR HGB CONC 32.9 g/dl (32-36); MEAN PLATELET VOLUME 10.9 fL (7.4-10.4); MONO % 4.1 %; MONO ABS # 0.33 K/uL (0.11-0.59); NEUT % 64.4 %; NEUT ABS # 5.17 K/uL (1.4-6.5); PLATELET COUNT 218 K/uL (130-400); RED CELL DISTRIBUTION WIDTH CV 14.4 % (11.5-14.5); RED CELL DISTRIBUTION WIDTH SD 47.1 fL (36.4-46.3); WHITE BLOOD COUNT 8.03 K/uL (4.8-10.8)
[2017-09-16 13:32] LABS: INR 0.9 (0.9-1.1); PTT PATIENT 23.9 SECONDS (21.0-31.0)
[2017-09-16 13:41] LABS: ALBUMIN 3.7 gm/dl (3.4-5.0); CALCIUM 9.3 mg/dl (8.5-10.1); CREATININE 0.78 mg/dl (0.60-1.20); POTASSIUM 4.1 mmol/L (3.5-5.1)
[2017-09-16 13:56] LABS: HEMOGLOBIN A1C 5.9 % (4.5-5.6)
--- NOTE | 2017-09-20 11:25 | HISTORY & PHYSICAL EXAMINATION ---
DATE OF ADMISSION: 09/30/2017 CHIEF COMPLAINT: Left knee pain. HISTORY OF PRESENT ILLNESS: Kary is a 67-year-old female with a 2-year history of left knee pain. The patient rates her pain an 8-9/10. She has pain with her daily activities. She has limited standing and walking tolerance. Pain is worse with weightbearing. The patient has had injections, home exercise program, NSAIDs and Tylenol. She is failing conservative treatment and is scheduled for a left total knee arthroplasty with Dr. Dobbins. PAST MEDICAL HISTORY: Asthma, peripheral neuropathy, history of GI ulcer with previous NSAID use. She denies heart disease, diabetes or DVT. PAST SURGICAL HISTORY: Hysterectomy, carpal tunnel bilateral, tonsillectomy, bilateral hip replacements, bilateral cataract extraction, and glaucoma. SOCIAL HISTORY: The patient denies alcohol or tobacco use. She lives in a 2-story home. She is and retired. FAMILY HISTORY: Negative for DVT. MEDICATIONS: Fish oil 1600 mg, calcium 600 mg, Asya 180 mg, vitamin B12, vitamin D3, vitamin B1, Imodium A-D p.r.n., aspirin 81 mg, probiotic, and Protonix. ALLERGIES: IBUPROFEN, SULFA DRUGS, SHELLFISH, DAIRY, GLUTEN, AND PENICILLIN. REVIEW OF SYSTEMS: See HPI. Ten other systems reviewed, all negative. PHYSICAL EXAMINATION: VITAL SIGNS: Height 5 feet 1 inch, weight 182 pounds, BMI 34. GENERAL: This is a well-developed, well-nourished female who is alert and oriented x3. Mood and affect are appropriate. HEENT: Normocephalic, atraumatic. Mucous membranes are moist and intact. NECK: Supple without lymphadenopathy. HEART: Regular rate and rhythm without murmurs, rubs or gallops. LUNGS: Clear to auscultation without wheezes or rhonchi. ABDOMEN: Soft and nontender. Bowel sounds are equal and active. EXTREMITIES: No ecchymosis, redness or warmth. She has neutral alignment. Range of motion is from 0-115 degrees with +1 laxity. She is neurovascularly intact with +5/5 strength. X-RAY EXAMINATION: AP and lateral views show joint space narrowing and osteophyte formation. IMPRESSION: Degenerative joint disease, left knee. PLAN: The patient will be admitted for a left total knee arthroplasty. We will plan on aspirin for DVT prophylaxis. The patient will have [facility] versus [facility] upon discharge for home therapy.
[~2017-09-30] VITALS: Ht 154.9 cm; Wt 82.4 kg
[2017-09-30] VITALS (7 sets, daily range): BP systolic 113–163; BP diastolic 63–78; PULSE 71–82; TEMP 36.4–36.7; O2SAT 91–99; Ht 154.9 cm; Wt 82.4 kg
[~2017-09-30 07:46] MED LIST changes: +ACET-1256 PO; -ACET-24 PO; +ACETAMINOPHEN 500 MG TAB PO SCH; -ASPI-320 PO; +ASPI81TA28 PO; +CALC500C70 PO; +CEFAZOLIN 2000MG IV PUSH 15 ML IV SCH; +CURCUMIN; +CeleBREX 200 MG CAP PO SCH; +DEXAMETHASONE 4 MG TAB PO SCH; +FAMOTIDINE 20 MG TAB PO SCH; +GABAPENTIN 300 MG CAP PO SCH; +LACTATED RINGER'S 1000ML IV SCH; +LACTATED RINGER'S 500 ML IV SCH; +METOCLOPRAMIDE HCL 10 MG TAB PO SCH; +PANT40TA PO; +ROPIVACAINE 5MG/ML 30 ML 150 MG, BUPIVACAINE 0.5% MPF INJ 30 ML, EpINEphrine HCL INJ 0.... INFIL SCH; -RXC5 PO; +[UNRECOGNIZED DRUG - OTHER]
[2017-09-30] MEDS ORDERED: FENTANYL CITRATE INJ 50 MCG/1 ML 2 ML VIAL ONE (08:37)
[2017-09-30] MEDS ORDERED: MIDAZOLAM HCL 1 MG/ML 2ML VIAL ONE ×2 (08:37→10:50)
[2017-09-30] MEDS ORDERED: BUPIVACAINE 0.5 % 5 MG/1 ML PF 10ML VIAL ONE (08:38)
[2017-09-30] MEDS ORDERED: ROPIVACAINE 0.5% 5 MG/ML 30 ML VIAL ONE (08:38)
[2017-09-30] MEDS ORDERED: EpINEphrine INJ 1MG/ML AMP 1 MG/ML AMP ONE (08:39)
[2017-09-30] MEDS: TRANEXAMIC ACID INJ 1,000 MG x 2 Bags IV SCH ×4 (09:55→14:02)
[2017-09-30] MEDS ORDERED: ORTHO JOINT ANESTHETIC ONE (09:58)
[2017-09-30] MEDS ORDERED: POVIDONE-IODINE OP SOLN 30 ML BTL ONE (09:58)
[2017-09-30] MEDS ORDERED: BACITRACIN 50000 UNIT VIAL ONE (09:59)
[2017-09-30] MEDS ORDERED: ATROPINE SULFATE 0.1 MG/ML 5ML SYR IV PRN (10:15)
[2017-09-30] MEDS ORDERED: FENTANYL CITRATE INJ 50 MCG/1 ML 2 ML VIAL IV PRN (10:15)
[2017-09-30] MEDS ORDERED: EpHEDrine SULFATE INJ 50 MG/ML AMP IV PRN (10:15)
[2017-09-30] MEDS ORDERED: ONDANSETRON INJ 2 MG/ML 2 ML VIAL IV PRN ×2 (10:15→12:00)
[2017-09-30] MEDS ORDERED: FLUMAZENIL 0.1 MG/1 ML 10 ML VIAL IV PRN (10:15)
[2017-09-30] MEDS ORDERED: PHENYLEPHRINE 100MCG/ML 5ML SYR IV PRN (10:15)
[2017-09-30] MEDS ORDERED: LABETALOL HCL IV 5 MG/ML 20ML IV PRN (10:15)
[2017-09-30] MEDS ORDERED: HYDROmorphone INJ 2 MG/ML SYR/VIAL IV PRN (10:15)
[2017-09-30] MEDS ORDERED: NALOXONE HCL 0.4 MG/1 ML VIAL/CARP IV PRN (10:15)
[2017-09-30] MEDS ORDERED: MEPERIDINE HCL 25 MG/ML CARP IV PRN (10:15)
[2017-09-30] MEDS ORDERED: ALBUTEROL HFA 8 GM INHALER INH PRN (12:00)
[2017-09-30] MEDS ORDERED: MoRPHine SULFATE 4 MG/ML 1 ML CARP\\VIAL IV PRN (12:00)
[2017-09-30] MEDS ORDERED: ALUMINUM/MAGNESIUM/SIMETH (MAALOX MAX) 30 ML UDC PO PRN (12:00)
[2017-09-30] MEDS ORDERED: BISACODYL 10 MG SUPP PR PRN (12:00)
[2017-09-30] MEDS ORDERED: FLUTICASONE PROPIONATE NA SPR 16 GM BTL PRN (12:00)
[2017-09-30] MEDS ORDERED: MAGNESIUM HYDROXIDE SUSP 30 ML UDC PO PRN (12:00)
[2017-09-30] MEDS ORDERED: CEFAZOLIN IV 2,000 MG in DEXTROSE 5% 50ML 50 ML IV SCH (12:00)
--- NOTE | 2017-09-30 12:03 | Anesthesiology Progress Note ---
Anesthesia Post Op Note Date & Time September 30, 2017 at 12:03 Vital Signs Pain Intensity: 0 Vital Signs Past 12 Hours Date Time Temp Pulse Resp B/P (MAP) Pulse Ox O2 Delivery O2 Flow Rate FiO2 09/30/17 11:55 36.6 96 14 128/60 97 Oxymask 10 09/30/17 08:10 36.7 80 18 163/78 93 Room Air Notes Mental Status: alert / awake / arousable, participated in evaluation Pt Amnestic to Procedure: Yes Nausea / Vomiting: adequately controlled Pain: adequately controlled Airway Patency, RR, SpO2: stable & adequate BP & HR: stable & adequate Hydration State: stable & adequate Neuraxial Anesthesia: was administered, sensory block is resolving Anesthetic Complications: no major complications apparent
--- NOTE | 2017-09-30 12:26 | DIAGNOSTIC IMAGING REPORT ---
L KNEE 2 VIEWS ROUTINE CLINICAL HISTORY: Osteoarthritis POSTOP STUDY COMPARISON: None. DISCUSSION: There are postsurgical changes of a total left knee arthroplasty and patellar resurfacing. The femoral tibial components appear well seated. Overlying surgical drains are visualized. There is air in the soft tissues consistent with recent surgery. IMPRESSION: Postsurgical changes of a total left knee arthroplasty. Electronically signed by: Preet Roberto M.D. 09/30/2017 12:24 PM Dictated Date/Time: 09/30/2017 12:24 PM
--- NOTE | 2017-09-30 12:40 | OPERATIVE REPORT ---
DATE OF OPERATION: 09/30/2017 PREOPERATIVE DIAGNOSIS: Osteoarthritis, left knee. POSTOPERATIVE DIAGNOSIS: Osteoarthritis, left knee. PROCEDURE: Left total knee arthroplasty. SURGEON: Celestino Dobbins MD BELT LACER: Dat iKrk PA-C. ANESTHESIA: Spinal. COMPLICATIONS: None. IMPLANTS USED: Femoral size 3, tibia size 2, tibial poly 13, patella size 33. DISPOSITION: Recovery room, stable. OPERATION AND FINDINGS: Following induction of spinal anesthesia, the patient's left leg was prepped and draped in the usual sterile manner. Limb was exsanguinated with an Esmarch bandage and tourniquet was inflated to 350 mmHg. A longitudinal incision was made anteriorly. Subcutaneous tissue was sharply dissected. Electrocautery was used for hemostasis. Prepatellar bursa was incised and median parapatellar incision was performed. Patella was everted and the knee was flexed. Fat pad was removed to aid in visualization and the anterior and posterior cruciate ligaments were removed. The medial face of the tibia was cleared of soft tissue first with a Bovie and a Hutson elevator. This tissue was retracted posteriorly using a blunt Hohmann. A Maxwell retractor was used to expose the synovium above on the anterior aspect of the femur and this was removed down to bone. The PSI guide was placed on the distal femur and two pins were placed anteriorly and kept in position and two additional pins were placed distally and removed. The distal femoral cutting block was placed in position and the distal femoral cut was used in the +0 setting. Next, the cutting block was removed and the #3 femoral block was placed in the distal end of the femur. Care was taken to ensure appropriate external rotation and feeler gauge was used to ensure no notching would occur. The femoral block was centered on the distal femur and in the medial and lateral direction and was fixed using two bone screws. The gold pins were then removed. The oscillating saw was used to create the bone cuts and the distal femoral cutting block was removed and the reciprocating saw was used to further trim the femoral cuts as well as a deep in the area for the trochlear groove. Next, posterior condyle remnants were removed. Following this, a meniscal clamp and knife were utilized to remove the anterior portion of both medial and lateral meniscus. The proximal tibia PSI guide was placed into position and the proximal tibial cutting guide was screwed into position. The extra medullary alignment guide was utilized to ensure appropriate alignment. The proximal tibia was cut and the proximal tibial cutting block was removed and this bone fragment was removed. The appropriate guide was used to perform the notch cut on the distal femur and a lamina mechanical expert and a cochlear knife were utilized to finish both medial and lateral meniscectomies to remove any remnants of the posterior or anterior cruciate ligaments. Following this, the distal femoral component was impacted into position and blunt Jm was used to sublux the tibia anteriorly. The proximal tibia was sized and a size 2 tibial tray was chosen as the size to be used. This was put into position and appropriate external rotation and a double check with extramedullary alignment guide was performed. The canal for the tibial stem was prepared first with a 17 mm drill and then the punch and a mallet and the trial tibial poly was placed. A #13 was chosen the size to be used. It was brought to extension and the patella was prepared with the patellar reamer. A #33 component was chosen the size to be used. The trial component was placed and knee was taken through a full range of motion and there was found to be no lateral subluxation of the tibia. No lateral release was required. The trials were all removed. The final components were obtained and assembled. Cement was mixed. The knee was thoroughly irrigated and the ortho mix was injected about the knee joint. The final components were cemented into position. After thoroughly suctioning and drying the bone ends, all excess cement was removed. The knee was held in extension while the cement hardened. The wound was irrigated and closed over a Hemovac drain. #1 Vicryl was used to close the extensor mechanism. Subcutaneous tissues closed using 0 Dexon. Skin was closed with fabricio. Sterile dressing of Adaptic, 4 x 4's, sterile Webril, and Rafa was applied. The patient tolerated the procedure well. Due to the complex nature of the procedure, the entire surgery was performed with the operational assistance of Dat Kirk PA-C. The clinical project assistant, under direct supervision, was involved in the actual performance of all aspects of the surgical procedure including hemostasis, tissue retraction and incision, instrument management, patient positioning, and wound closure. I attest to the content of the Intraoperative Record and any orders documented therein. Any exception s are noted below.
[2017-09-30] MEDS: D5W AND 1/2NSS + 20MEQ KCL 1,000 ML IV SCH ×2 (14:30→23:26)
[2017-09-30] MEDS: ACETAMINOPHEN 500 MG TAB PO SCH ×2 (14:30→20:56)
[2017-09-30] MEDS: CEFAZOLIN IV 2,000 MG in SYRINGE 0 ML IV SCH (18:19)
[2017-09-30] MEDS: TRAMADOL HCL 50 MG TAB PO PRN ×2 (19:12→23:36)
[2017-09-30] MEDS: SENNA 8.6 MG TAB PO SCH (20:54)
[2017-09-30] MEDS: DOCUSATE SODIUM 100 MG CAP PO SCH (20:54)
[2017-09-30] MEDS: ASPIRIN 81 MG ECTAB PO SCH (20:55)
[2017-10-01] MEDS: CEFAZOLIN IV 2,000 MG in SYRINGE 0 ML IV SCH (01:53)
[2017-10-01 03:07] VITALS: BP 116/73; PULSE 82; TEMP 36.5; O2SAT 91
[2017-10-01] MEDS: ACETAMINOPHEN 500 MG TAB PO SCH ×3 (05:33→21:18)
[2017-10-01] MEDS: TRAMADOL HCL 50 MG TAB PO PRN ×2 (05:33→13:51)
[2017-10-01 06:28] LABS: HEMATOCRIT 35.9 % (37-47); HEMOGLOBIN 12.3 g/dL (12.0-16.0); MEAN CELL VOLUME 88.2 fL (80-100); MEAN CORPUSCULAR HEMOGLOBIN 30.2 pg (25-34); MEAN CORPUSCULAR HGB CONC 34.3 g/dl (32-36); MEAN PLATELET VOLUME 10.9 fL (7.4-10.4); PLATELET COUNT 224 K/uL (130-400); RED CELL DISTRIBUTION WIDTH CV 13.5 % (11.5-14.5); RED CELL DISTRIBUTION WIDTH SD 43.9 fL (36.4-46.3); WHITE BLOOD COUNT 16.94 K/uL (4.8-10.8)
[2017-10-01 06:58] VITALS: BP 122/73; PULSE 77; TEMP 36.5; O2SAT 94
[2017-10-01 07:07] LABS: CALCIUM 8.1 mg/dl (8.5-10.1); CREATININE 0.66 mg/dl (0.60-1.20); POTASSIUM 4.1 mmol/L (3.5-5.1)
--- NOTE | 2017-10-01 07:32 | Orthopedic Progress Note ---
Orthopedic Progress Note Date of Service October 01, 2017. Subjective Post OP Day: 1 Reports: feeling well Objective N/V intact, dressing C/D/I (Hemovac in place), toes mobile Date Time Temp Pulse Resp B/P (MAP) Pulse Ox O2 Delivery O2 Flow Rate FiO2 10/01/17 06:58 36.5 77 16 122/73 (89) 94 Room Air 10/01/17 03:07 36.5 82 16 116/73 (87) 91 Room Air 09/30/17 23:10 36.6 82 18 117/63 (81) 91 Room Air 09/30/17 19:16 36.5 80 16 129/76 (93) 93 Room Air 09/30/17 19:00 Room Air 09/30/17 15:15 36.4 81 17 126/71 (89) 99 Room Air 09/30/17 14:07 71 16 115/69 (84) 97 2.0 09/30/17 13:43 76 16 113/73 (86) 98 2.0 09/30/17 13:15 97 Nasal Cannula 2.0 09/30/17 13:15 36.4 76 16 124/75 (91) 98 Nasal Cannula 2.0 09/30/17 13:15 98 Nasal Cannula 2.0 09/30/17 12:55 77 14 115/67 97 Nasal Cannula 2 09/30/17 12:45 73 18 136/79 99 Nasal Cannula 2 09/30/17 12:35 36.9 68 12 115/59 98 Nasal Cannula 2 09/30/17 12:25 72 14 111/55 98 Nasal Cannula 2 09/30/17 12:15 79 14 120/62 99 Nasal Cannula 2 09/30/17 12:05 79 14 109/55 99 Oxymask 10 09/30/17 11:55 36.6 96 14 128/60 97 Oxymask 10 09/30/17 08:10 36.7 80 18 163/78 93 Room Air Laboratory Results 24 Hours: Test 10/01/17 05:24 Hematocrit 35.9 % Hemoglobin 12.3 g/dL Assessment & Plan Assessment: 67 yo female stable POD #1 s/p left TKA Plan: 1. Med management 2. DVT prophylaxis- ASA, SCDs 3. PT/OT 4. D/C planning- pt interested in [facility]
--- NOTE | 2017-10-01 07:34 | Discharge Instructions ---
Discharge Instructions Date of Service October 01, 2017. Admission Reason for Admission: Left Knee Osteoarthritis Discharge Discharge Diagnosis / Problem: Left knee arthritis Discharge Goals Goal(s): Decrease discomfort, Improve function Activity Recommendations Activity Limitations: as noted below Weightbearing Status: Left weightbearing (as tolerated) . Instructions / Follow-Up Instructions / Follow-Up ACTIVITY RECOMMENDATIONS: SELF CARE INSTRUCTIONS AFTER TOTAL KNEE REPLACEMENT A. You may need to continue a physical therapy program after discharge from the hospital. There are several options available to you. Your doctor will assist you in selecting the best one for you. 1. An out-patient facility 2 to 3 times a week for therapy or home therapy. 2. Continue working on all exercises taught to you in the hospital. Your goals should be to increase bending of your knee to 90 degrees and beyond and to fully straighten your knee. B. You may progress at your own pace from walking with a walker or crutches to a cane; then to no assistive devices. C. Make walking a part of your daily routine. Be up as much as comfortable with rest periods throughout the day. Rest with leg elevation is very important. Use the ice wrap frequently for the first 3-4 weeks. D. There are no restrictions on activities. You may ride in a car, shop, participate in lean process deployment consultant and all social activities. E. Wear the long elastic stockings (ALEN hose) 20 hours a day for 2 weeks after surgery. They can be removed several times a day for laundering and for a bath. F. You may shower, no tub baths until cleared by your doctor. SPECIAL CARE INSTRUCTIONS: VERY IMPORTANT TO READ AND REVIEW A. There are a few signs you need to watch for after you are home. Call [facility] if you notice any of the followin. Increased severe knee pain. Some pain is expected especially when you exercise. 2. Increased swelling in your leg or knee; pain or swelling of the calf muscle in either lower leg. 3. Any fluid drainage from the incision. 4. Shortness of breath or chest pain. B. Please call [facility] at if you have any concerns or questions about your operation or recovery. The doctor or his nurse will return your call promptly. C. You must take antibiotics before dental work, bladder, bowel or other surgery. Your doctor will provide you with a permanent care to carry describing this precaution. IMPORTANT: * REMEMBER TO TAKE ASPIRIN, 81 MG, TWICE DAILY FOR 4 WEEKS UNLESS OTHERWISE DIRECTED. THIS IS YOUR BLOOD THINNER. * HIGH RISK PATIENTS MAY BE PRESCRIBED A STRONGER BLOOD THINNER. THIS WILL BE PROVIDED AT DISCHARGE. * CALL IF INCREASED PAIN, REDNESS, DRAINAGE OR FEVER GREATER THAT 101. * WEAR ALEN HOSE 20 HOURS PER DAY FOR 2 WEEKS. Silverlon- This is a large adhesive bandage that contains silver ions. This helps your incision heal by fighting off bacteria and protecting it from the outside environment. You are permitted to shower with this dressing. This will remain on your incision for 7 days and then should be removed. Some visible blood or drainage through the dressing window is normal. If there is significant drainage or leaking noted before the 7 days notify your doctor's office immediately. Once removed, keep incision clean and dry. If there is any drainage or redness noted, please call your surgeon. Zip Skin Closure You have a Zipline Closure System. As noted below, this keeps your incision closed. Change the dressing daily. Keep the wound covered with a dressing as it has the potential to snag on your clothing. The Zipline will remain on for a total of 2 weeks. Do not remove it! You will be given instructions by nursing staff at the time of discharge to care for your Zip Closure System. This devices uses plastic straps to keep your incision closed and protected throughout your recovery. If you have any questions please refer to these instructions first. FOLLOW UP VISIT: If appointment is not already scheduled: Please call [facility] to make a follow-up appointment for 2 weeks after your surgery at . Current Hospital Diet Patient's current hospital diet: Gluten Free Diet Discharge Diet Recommended Diet: Gluten Free Diet Procedures Procedures Performed: Left total knee arthroplasty Pending Studies Studies pending at discharge: no Laboratory Results Hemoglobin A1c Test 09/16/17 11:41 Range/Units Estimated Average Glucose 123 mg/dl Hemoglobin A1c 5.9 H 4.5-5.6 % Medical Emergencies . Who to Call and When: Medical Emergencies: If at any time you feel your situation is an emergency, please call 911 immediately. . Non-Emergent Contact Non-Emergency issues call your: Surgeon Call Non-Emergent contact if: temperature is above 101.5, your pain is not controlled, wound has increased drainage, wound has increased redness . "Provider Documentation" section prepared by Poncho Bolaños PA-C. . [place] Drug Monitoring Program Search Results: patient reviewed within database, no issues identified
--- NOTE | 2017-10-01 07:37 | Anesthesiology Progress Note ---
Anesthesia Post Op Note Date & Time October 01, 2017 at 07:36 Vital Signs Pain Intensity: 7.0 Vital Signs Past 12 Hours Date Time Temp Pulse Resp B/P (MAP) Pulse Ox O2 Delivery O2 Flow Rate FiO2 10/01/17 06:58 36.5 77 16 122/73 (89) 94 Room Air 10/01/17 03:07 36.5 82 16 116/73 (87) 91 Room Air 09/30/17 23:10 36.6 82 18 117/63 (81) 91 Room Air Notes Mental Status: alert / awake / arousable, participated in evaluation Pt Amnestic to Procedure: Yes Nausea / Vomiting: adequately controlled Pain: adequately controlled Airway Patency, RR, SpO2: stable & adequate BP & HR: stable & adequate Hydration State: stable & adequate Neuraxial Anesthesia: sensory block resolved Anesthetic Complications: no major complications apparent
[2017-10-01 07:46] VITALS: O2SAT 94
[2017-10-01] MEDS: ASPIRIN 81 MG ECTAB PO SCH ×2 (08:47→21:17)
[2017-10-01] MEDS: MULTIVITAMIN TAB PO SCH (08:47)
[2017-10-01] MEDS: DOCUSATE SODIUM 100 MG CAP PO SCH ×2 (08:47→21:00)
[2017-10-01] MEDS: PANTOprazole SOD 40 MG TAB PO SCH (08:47)
[2017-10-01] MEDS: FEXOFENADINE HCL 180 MG TAB PO SCH (08:48)
[2017-10-01] MEDS: IRON COMPLEX POLYSACCHARIDE W/VIT C 150 MG CAP PO SCH (08:48)
[2017-10-01] MEDS: LOPERAMIDE HCL 2 MG CAP PO SCH (08:48)
[2017-10-01] MEDS: THIAMINE HCL 100 MG TAB PO SCH (08:48)
[2017-10-01] MEDS: METHYLCOBALAMIN 1000 MCG SL SCH (08:49)
[2017-10-01] MEDS: SUB SL SCH (08:49)
[2017-10-01 11:05] VITALS: BP 137/76; PULSE 70; TEMP 36.4; O2SAT 95
[2017-10-01 15:12] VITALS: BP 158/75; PULSE 75; TEMP 36.4; O2SAT 96
[2017-10-01] MEDS: SENNA 8.6 MG TAB PO SCH (21:00)
[2017-10-01] MEDS: OXYCODONE HCL IR 5 MG TAB (IMMEDIATE RELEASE) PO PRN (21:16)
[2017-10-01 22:36] VITALS: BP 134/72; PULSE 83; TEMP 36.5; O2SAT 95
[2017-10-02] MEDS: OXYCODONE HCL IR 5 MG TAB (IMMEDIATE RELEASE) PO PRN ×4 (02:43→16:47)
[2017-10-02] MEDS: ACETAMINOPHEN 500 MG TAB PO SCH ×3 (05:37→21:29)
[2017-10-02 07:03] VITALS: BP 135/74; PULSE 82; TEMP 36.7; O2SAT 95
[2017-10-02] MEDS: DOCUSATE SODIUM 100 MG CAP PO SCH ×2 (07:13→19:22)
[2017-10-02] MEDS: LOPERAMIDE HCL 2 MG CAP PO SCH (07:14)
[2017-10-02] MEDS: IRON COMPLEX POLYSACCHARIDE W/VIT C 150 MG CAP PO SCH (07:22)
[2017-10-02] MEDS: FEXOFENADINE HCL 180 MG TAB PO SCH (07:22)
[2017-10-02] MEDS: PANTOprazole SOD 40 MG TAB PO SCH (07:22)
[2017-10-02] MEDS: ASPIRIN 81 MG ECTAB PO SCH ×2 (07:22→21:29)
[2017-10-02] MEDS: THIAMINE HCL 100 MG TAB PO SCH (07:22)
[2017-10-02] MEDS: MULTIVITAMIN TAB PO SCH (07:22)
[2017-10-02] MEDS: METHYLCOBALAMIN 1000 MCG SL SCH (07:23)
[2017-10-02] MEDS: SUB SL SCH (07:23)
--- NOTE | 2017-10-02 08:57 | Orthopedic Progress Note ---
Orthopedic Progress Note Date of Service October 02, 2017. Subjective Post OP Day: 2 Reports: feeling well Objective N/V intact, dressing C/D/I, toes mobile Date Time Temp Pulse Resp B/P (MAP) Pulse Ox O2 Delivery O2 Flow Rate FiO2 10/02/17 07:18 Room Air 10/02/17 07:03 36.7 82 16 135/74 (94) 95 Room Air 10/01/17 23:47 Room Air 10/01/17 22:36 36.5 83 15 134/72 (92) 95 Room Air 10/01/17 17:50 Room Air 10/01/17 15:12 36.4 75 17 158/75 (102) 96 Room Air 10/01/17 11:05 36.4 70 16 137/76 (96) 95 Room Air Assessment & Plan Assessment: 67 yo female stable POD #2 s/p left TKA Plan: 1. Med management 2. DVT prophylaxis- ASA, SCDs 3. PT/OT 4. D/C planning- probable d/c to [place] tomorrow
[2017-10-02 14:56] VITALS: BP 158/74; PULSE 79; TEMP 36.8; O2SAT 95
[2017-10-02] MEDS: SENNA 8.6 MG TAB PO SCH (19:22)
[2017-10-02] MEDS: TRAMADOL HCL 50 MG TAB PO PRN (22:20)
[2017-10-02 22:55] VITALS: BP 157/76; PULSE 85; TEMP 36.7; O2SAT 96
[2017-10-03] MEDS: TRAMADOL HCL 50 MG TAB PO PRN (03:06)
[2017-10-03] MEDS: ACETAMINOPHEN 500 MG TAB PO SCH (05:43)
[2017-10-03 06:38] VITALS: BP 159/76; PULSE 89; TEMP 36.6; O2SAT 95
[2017-10-03] MEDS: SUB SL SCH (07:17)
[2017-10-03] MEDS: METHYLCOBALAMIN 1000 MCG SL SCH (07:17)
[2017-10-03] MEDS: ASPIRIN 81 MG ECTAB PO SCH (07:18)
[2017-10-03] MEDS: PANTOprazole SOD 40 MG TAB PO SCH (07:18)
[2017-10-03] MEDS: DOCUSATE SODIUM 100 MG CAP PO SCH (07:18)
[2017-10-03] MEDS: IRON COMPLEX POLYSACCHARIDE W/VIT C 150 MG CAP PO SCH (07:18)
[2017-10-03] MEDS: LOPERAMIDE HCL 2 MG CAP PO SCH (07:18)
[2017-10-03] MEDS: THIAMINE HCL 100 MG TAB PO SCH (07:18)
[2017-10-03] MEDS: FEXOFENADINE HCL 180 MG TAB PO SCH (07:18)
[2017-10-03] MEDS: MULTIVITAMIN TAB PO SCH (07:18)
[2017-10-03] MEDS: OXYCODONE HCL IR 5 MG TAB (IMMEDIATE RELEASE) PO PRN ×2 (07:22→11:50)
--- NOTE | 2017-10-03 07:54 | Orthopedic Progress Note ---
Orthopedic Progress Note Date of Service October 03, 2017. Subjective Post OP Day: 3 Reports: feeling well Objective N/V intact, dressing C/D/I, toes mobile Date Time Temp Pulse Resp B/P (MAP) Pulse Ox O2 Delivery O2 Flow Rate FiO2 10/03/17 06:38 36.6 89 16 159/76 (103) 95 Room Air 10/02/17 23:15 Room Air 10/02/17 22:55 36.7 85 16 157/76 (103) 96 Room Air 10/02/17 20:00 Room Air 10/02/17 14:56 36.8 79 18 158/74 (102) 95 Assessment & Plan Assessment: 67 yo female stable POD #3 s/p left TKA Plan: 1. Med management 2. DVT prophylaxis- ASA, SCDs 3. PT/OT 4. D/C planning- d/c to [place] when insurance auth
[2017-10-03] MEDS ORDERED: RXC5 PO (07:56)
[2017-10-03] MEDS ORDERED: ACET-24 PO (07:56)
[2017-10-03] MEDS ORDERED: ASPI-320 PO (07:56)
[2017-10-03] MEDS ORDERED: ULT50X PO (07:56)
[2017-10-03 09:53] VITALS: BP 159/76; PULSE 89; TEMP 36.6; O2SAT 95
--- NOTE | 2017-10-05 16:32 | DISCHARGE SUMMARY ---
DISCHARGE DIAGNOSIS: Degenerative joint disease, left knee. SECONDARY DIAGNOSES: Asthma, peripheral neuropathy, history of GI ulcer with previous NSAID use. CONSULTS: None. COMPLICATIONS: None. PROCEDURES: Left total knee arthroplasty performed by Dr. Dobbins on 09/30/2017. BRIEF HISTORY: As dictated in history and physical. HOSPITAL SUMMARY: The patient was admitted on the above-noted date and had the above-noted surgery performed which she tolerated well. On the first postoperative day, she was feeling well. Neurovascular was intact. Dressings clean, dry and intact. Toes were mobile. Vital signs were stable. She was afebrile. Hemoglobin was 12.3 and she was started on physical therapy protocol and continued on DVT prophylaxis and pain management. By the second postoperative day, she was still feeling well and had no complaints. Dressings were intact. Toes were mobile. Neurovascularly intact and she was continued on her protocol. Plans were for her to go to [facility] and case management had been consulted and arranged for transfer. By 10/03/2017 she was feeling well. She was progressing with her physical therapy protocol. Vital signs were stable. She was afebrile and it was felt that she could be discharged to [facility] on 10/03/2017. DISCHARGE MEDICATIONS: Acetaminophen 1000 mg p.o. q. 8 hours for 14 days, aspirin 81 mg p.o. b.i.d. for 28 days, oxycodone 5-10 mg p.o. q. 4-6 hours p.r.n., tramadol 50-100 mg p.o. q. 4 hours p.r.n., resume home meds as listed. Stop your original Tylenol dosage as previously and after 28 days please resume your once daily dosing of aspirin.
== END 2017-10-03 12:10 | DRG 470 ==
LOC: C.ACU 07:46 → C.3E 08:00 → ENRESERV 12:54
PROC: 0SRD0J9 Replacement of Left Knee Joint with Synthetic Substitute, Cemented, Open Approach (ICD-10-PCS; principal; 2017-09-30 10:15)
DX: M17.12 Unilateral primary osteoarthritis, left knee (principal); J45.909 Unspecified asthma, uncomplicated; E53.8 Deficiency of other specified B group vitamins; G63 Polyneuropathy in diseases classified elsewhere; K21.9 Gastro-esophageal reflux disease without esophagitis; E66.9 Obesity, unspecified; Z68.34 Body mass index [BMI] 34.0-34.9, adult; Z96.643 Presence of artificial hip joint, bilateral; Z87.19 Personal history of other diseases of the digestive system; Z79.82 Long term (current) use of aspirin; Z90.710 Acquired absence of both cervix and uterus; Z90.722 Acquired absence of ovaries, bilateral; Z90.79 Acquired absence of other genital organ(s); Z98.41 Cataract extraction status, right eye; Z98.42 Cataract extraction status, left eye; Z98.890 Other specified postprocedural states; Z88.0 Allergy status to penicillin; Z88.2 Allergy status to sulfonamides; Z88.6 Allergy status to analgesic agent; Z91.041 Radiographic dye allergy status; Z91.011 Allergy to milk products; Z91.013 Allergy to seafood; Z91.018 Allergy to other foods; Z91.030 Bee allergy status